=== PATIENT | female | born 1995 | race Caucasian/White ===

== ENCOUNTER 2023-09-06 10:25 | Outpatient (OUT) | payer OTHER, SELFPAY ==
[2023-09-06 10:49] LABS: Basophils Percent Auto 0.5 % (0.2-2.0); Eosinophils Absolute Auto 0.2 10^3/uL (0.0-0.7); Eosinophils Percent Auto 1.9 % (0.9-7.0); Hematocrit 37.2 % (36.0-48.0); Hemoglobin 12.6 g/dL (12.0-16.0); Immature Granulocytes Abs Auto 0.04 10^3/uL (0.00-0.03); Immature Granulocytes Pct Auto 0.5 % (0.0-0.5); Lymphocytes Absolute Auto 2.7 10^3/uL (1.2-3.8); Lymphocytes Percent Auto 34.6 % (20.5-60.0); Mean Corpuscular HGB Conc 33.9 g/dL (29.9-35.2); Mean Corpuscular Hemoglobin 31.8 pg (26.7-34.0); Mean Corpuscular Volume 93.9 fL (81.0-99.0); Mean Platelet Volume 9.6 fL (9.5-13.5); Monocytes Absolute Auto 0.5 10^3/uL (0.3-0.8); Monocytes Percent Auto 5.9 % (1.7-12.0); Neutrophils Absolute Auto 4.5 10^3/uL (1.4-6.5); Neutrophils Percent Auto 56.6 % (43.0-75.0); Platelet Count 355 10^3/uL (150-450); Red Blood Count 3.96 10^6/uL (4.20-5.40); Red Cell Distribution Width 11.9 % (11.0-15.0); White Blood Count 7.9 10^3/uL (4.0-11.0)
[2023-09-06 11:20] LABS: Estimated Average Glucose 108 mg/dL; Glycohemoglobin A1C 5.4 % (4.5-6.2)
[2023-09-06 12:27] LABS: Free T4 0.76 ng/dL (0.76-1.46)
[2023-09-06 12:30] LABS: HCG Quantitative <1 mIU/mL; Thyroid Stimulating Hormone 1.039 uIU/mL (0.358-3.740)
[2023-09-07 04:07] LABS: FSH 6.1 mIU/mL (.); Luteinizing Hormone(LH) 18.2 mIU/mL (.)
[2023-09-10 12:08] LABS: Anti-Mullerian Hormone (AMH) 13.6 ng/mL (.)
[2023-09-12 12:09] LABS: DHEA, Serum 513 ng/dL (31-701)
== END 2023-09-06 10:26 | disposition home or self-care (01) ==
PROVIDERS: Visit Provider Obstetrics & Gynecology
DX: E28.2 Polycystic ovarian syndrome (principal)
CPT/HCPCS: 36415; 82397; 82626; 82627; 83001; 83002; 83036; 84439; 84443; 84702; 85025

== ENCOUNTER 2023-12-09 10:03 | Outpatient (OUT) | payer OTHER, SELFPAY ==
--- OUTSIDE RECORDS SUMMARY | 2023-12-09 10:07 | XMS_ITS | CCD ---
Author Name Unknown Address [facility] [address] [place] [address] Organization [facility] Care Team Providers Care Partner Integration Planner Name Role Phone OTHER, [facility]OSPITAL [facility] Unavailable Unava ilable OTHER, HOSPITAL PHYSICIANS Unavailable Unava ilable DOT CHAVEZ Unavailable Unavailable KARASIK, DR THOMAS Admitting Unavailable KARASIK, DR THOMAS Attending Unavailable KARASIK, DR THOMAS Consulting Unavailable ZIEBER, DR ROMELIA Bethea Consulting Unavailable KARASIK, DR THOMAS Attending Unavailable KARASIK, DR THOMAS Consulting Unavailable KARASIK, DR THOMAS Admitting Unavailable Unavailable Primary Care Provider UnavailJENAE Britt Attending Unavailable Allergies Allergy Classification Reported Allergen(s) Allergy Type Date of Onset Reaction(s) Facility (1 source) Cat Dander Propensity to adverse reactions to drug 9 Itching, Other: See Comments [facility] Medications Current Medications Medication Drug Class(es) Dates Sig (Normalized) Sig (Original) Ethinyl Estradiol / norgestimate (1 source) Progestin, Estrogen Start: 03-19-2022 take 1 tablet by mouth once daily norgestimate 0.25 mg-ethinyl estradiol 35 mcg (SPRINTEC, ORTHO-CYCLEN) 0.25-35 mg-mcg per tablet Take 1 tablet by mouth once daily. 30 tablet 11 03/19/2022 Active Comment on above: Take 1 tablet by once daily. 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 Unclassified (1 source) Unknown / UNK(Unknown) Onset: 8 Past or Other Problems Problem Classification Problem Date Documented Da te Episodic/Chronic Genitourinary symptoms and ill-defined conditions (4 sources) Dysuria; Translations: [Dysuria] Onset: 10-25-2017 Episodic Results Test Name Value Interpretation Reference Range Facility Comp Metabolic Panelon 10-21 Albumin [Mass/Vol] 4.8 g/dL Normal 3.9-4.9 [facility] Comment on above: Performed By: #### I NSULN, DHEAS #### [facility] [address] [address] ALP [Catalytic activity/Vol] 64 U/L Normal 34-123 [facility] Comment on above: Performed By: #### I NSULN, DHEAS #### [address] [address] ALT [Catalytic activity/Vol] 20 U/L Normal 7-38 [facility] Comment on above: Performed By: #### I NSULN, DHEAS #### [id number] [place] [address] Anion gap [Moles/Vol] 12 mmol/L Normal 9-18 [facility] Comment on above: Performed By: #### I NSULN, DHEAS #### [address] [place] [address] AST [Catalytic activity/Vol] 16 U/L Normal 13-35 [facility] Comment on above: Performed By: #### I NSULN, DHEAS #### [facility] [employer] [address] [address] Bilirubin [Mass/Vol] 0.4 mg/dL Normal 0.2-1.3 [facility] Comment on above: Performed By: #### I NSULN, DHEAS #### [facility] [employer] [address] [address] Calcium [Mass/Vol] 9.3 mg/dL Normal 8.5-10.2 [facility] Comment on above: Performed By: #### I RIOSN DHEAS #### [place] [phone] Chloride [Moles/Vol] 102 mmol/L Normal 97-105 [facility] Comment on above: Performed By: #### I TOMI DHEAS #### [address] [place] [phone] CO2 [Moles/Vol] 25 mmol/L Normal 22-30 [facility] Comment on above: Performed By: #### I TOMI DHEAS #### [place] [phone] Creatinine [Mass/Vol] 0.61 mg/dL Normal 0.58-0.96 [facility] Comment on above: Performed By: #### I TOMI DHEAS #### [address] [place] [phone] eGFR- Amer. >60 Normal [facility] Comment on above: Performed By: #### I TOMI DHEAS #### [place] [phone] eGFR-All Other Races >60 Normal [facility] Comment on above: Result Comment: eGFR (Estimated GFR) Units of measure: mL/min/1.73 meters squared eGFR is derived from the reexpressed MDRD Study equation using the following parameters: serum creatinine, age, gender and race. The creatinine assay has been calibrated to be traceable to IDMS. An eGFR <60 mL/min/1.73m2 for >3 months is consistent with chronic kidney disease. Refer to KDOQI guidelines for clinical interpretation. In patients with unstable renal function, e.g. those with acute kidney injury, the eGFR may not accurately reflect actual GFR. Note: On 12/11/2021, the eGFR calculation will be updated to the NKF-ASN Task Force recommended 2020 CKD-EPI creatinine equation which does not include a race variable. For more information or to access a 2020 CKD-EPI calculator, visit the National Kidney Foundation website at kidney.org/professionals/kdoqi/gfr_calculator. Performed By: #### I TOMI DHEAS #### [facility] [employer] [address] [address] Glucose [Mass/Vol] 110 mg/dL High 74-99 [facility] Comment on above: Result Comment: The [place] Diabetes Association (ADA) provides guidance for cutoff values for fasting glucose and random glucose. The ADA defines fasting as no caloric intake for at least 8 hours. Fasting plasma glucose results between 100 to 125 mg/dL indicate increased risk for diabetes (prediabetes). Fasting plasma glucose results greater than or equal to 126 mg/dL meet the criteria for diagnosis of diabetes. In the absence of unequivocal hyperglycemia, results should be confirmed by repeat testing. In a patient with classic symptoms of hyperglycemia or hyperglycemic crisis, random plasma glucose results greater than or equal to 200 mg/dL meet the criteria for diagnosis of diabetes. Reference: Standards of Medical Care in Diabetes 2016, [place] Diabetes Association. Diabetes Care. 2016.39(Suppl 1). Performed By: #### I TOMI DHEAS #### [facility] [employer] [facility] [address] Potassium [Moles/Vol] 3.3 mmol/L Low 3.7-5.1 [facility] Comment on above: Performed By: #### I TOMI DHEAS #### [facility] [employer] [address] [address] Protein [Mass/Vol] 7.4 g/dL Normal 6.3-8.0 [facility] Comment on above: Performed By: #### I NSBRIANN DHEAS #### [facility] [employer] [address] [phone] Sodium [Moles/Vol] 139 mmol/L Normal 136-144 [facility] Comment on above: Performed By: #### I TOMI DHEAS #### [facility] [employer] [facility] [address] Urea nitrogen [Mass/Vol] 12 mg/dL Normal 7-21 [facility] Comment on above: Performed By: #### I TOMI DHEAS #### [address] [phone] [place] [phone] DHEA-Son 10-21-2021 DHEA-S 333.3 ug/dL Normal 148.0-407.0 [facility] Comment on above: Result Comment: Refe rence ranges are age and gender specific. For additional information, reference range tables can be found in the laboratory test directory. The normal values are based on the following source: Dehydroepiandrosterone sulfate (DHEA S) [package insert V 17.0 Yoruba]. [facility], [place], [place]: May 2013. Performed By: #### I TOMI DHEAS #### [address] [phone] Insulinon 10-21-2021 Insulin 17.1 mU/L Normal 3.0-25.0 [facility] Comment on above: Performed By: #### I TOMI DHEAS #### [address] [place] [phone] Testosterone, Tot/Fron 10-21 Testosterone [Mass/Vol] 50 ng/dL Normal 8-60 [facility] Comment on above: Result Comment: (NOT E) ADDITIONAL INFORMATION Testing performed by Liquid Chromatography-Tandem Mass Spectrometry (LC-MS/MS). This test was developed and its performance characteristics determined by [facility] in a manner consistent with CLIA requirements. This test has not been cleared or approved by the U.S. Food and Drug Administration. Performed By: #### T FTEST #### [facility] [address] [place] [address] Testosterone, Free 0.60 ng/dL Normal 0.06-1.08 [facility] Comment on above: Result Comment: (NOT E) ADDITIONAL INFORMATION Testing performed by [facility]. This test was developed and its performance characteristics determined by [facility] in a manner consistent with CLIA requirements. This test has not been cleared or approved by the U.S. Food and Drug Administration. Performed By: #### T FTEST #### [facility] [address] [place] [address] [facility] CNPN Telephone (ENDOMN) -- FRANCESCO COREAS ([id number]) 1995 F Date Time Provider Department 10/04/21 LIZZY VANCE During your visit today, we recorded the following information about you: Wilfred Sanchez 10/04/2021 1:20 PM Signed Release form, PCOS note,s and tumor marker lab re-indexed to chart. Allergies As of Date: 10/04/2021 (Not on File) Date Reviewed: Never Reviewed Reason for Visit: Received Outside Medical Records [[id number]] Cmt: PCOS notes, tumor marker lab, release form Problem List As Of Date: 10/04/2021 (None) Encounter Status:Closed by WILFRED SANCHEZ on 11/12/21 Normal [facility] 17-[place] PROGESTERONE, LC/MSon 09-09-2021 17-OH Progesterone LCMS 94 ng/dL Normal [facility] Comment on above: Result Comment: Adul t Female Follicular 15 - 70 Luteal 35 - 290 Performed By: #### P ROGLCM #### [facility] [address] [place] [address] Dr. Jae Smith US PELVIS AND TRANSVAGon US PELVIS AND TRANSVAG EXAMINATION: US PELVIS AND TRANSVAG HISTORY: Oligomenorrhea COMPARISON: No relevant comparison available. TECHNIQUE: Transabdominal and transvaginal sonographic examination. FINDINGS: UTERUS: Normal size and appearance. Uterus size: 6. 63.7 x 2.8 cm ENDOMETRIUM: Normal homogeneous appearance. Endometrial thickness: 5 mm RIGHT OVARY: Contains numerous peripherally located tiny follicles. Benign-appearing 1.7 cm cyst also seen. Duplex Doppler demonstrates normal waveform and flow; resistive index 0.63. Ovary size: 4.0 x 2.6 x 2.6 cm LEFT OVARY: Contains numerous peripherally located tiny follicles. Duplex Doppler demonstrates normal waveform and flow; resistive index 0.72. Ovary size: 2.9 x 3.2 x 2.3 cm CUL-DE-SAC: Unremarkable. No significant free fluid. BLADDER: Unremarkable. OTHER: None. IMPRESSION: 1. Numerous small peripherally located follicles within the right and left ovary; nonspecific but this can be seen with polycystic ovarian syndrome. 2. Normal appearance of uterus and endometrium. Electronically authenticated by: ROMELIA GATICA Date: 2021-09-07 14:08 Normal [facility] DHEA-SULFATEon 09-05-2021 DHEA-Sulfate 475.0 ug/dL Critically high 110.0-431.7 [facility] Comment on above: Performed By: #### D HETRICIA #### [facility] [address] [address] [address] Jae Smith FSHon 09-05-2021 FSH 6.2 mIU/mL Normal [facility] Comment on above: Result Comment: Adul t Female: Follicular phase 3.5 - 12.5 Ovulation phase 4.7 - 21.5 Luteal phase 1.7 - 7.7 Postmenopausal 25.8 - 134.8 Performed By: #### L BCFS #### [facility] [address] [place], [place] [address] Dr. Jae Smith LUTEINIZING HORMONE (LH)on 11-05-2020 LH 21.7 mIU/mL Normal [facility] Comment on above: Result Comment: Adul t Female: Follicular phase 2.4 - 12.6 Ovulation phase 14.0 - 95.6 Luteal phase 1.0 - 11.4 Postmenopausal 7.7 - 58.5 Performed By: #### L BCLH #### [facility] [address] [address] [address] Jae Smith PROLACTINon 09-05-2021 Prolactin 38.9 ng/mL Critically high 4.8-23.3 [facility] Comment on above: Performed By: #### P ROLAC #### [facility] [address] [address] [address] Jae Smith TESTOSTERONE, TOTALon 2020 Testosterone [Mass/Vol] 79 ng/dL Critically high 13-71 [facility] Comment on above: Performed By: #### T ESTTOT #### [facility] [address] [place] [address] Dr. Jae Smith TSHon 09-04-2021 TSH 1.687 uIU/mL Normal 0.470-4.680 [facility] Comment on above: Performed By: #### T SH #### [facility] [address] [place] [address] Dr. Jae Smith TSH RANGE SEE BELOW Normal [facility] Comment on above: Result Comment: <0.3 4 UIU/ml HYPERTHYROID 0.34-5.60 UIU/ml EUTHYROID >5.60 UIU/ml HYPOTHYROID Performed By: #### T SH #### [facility] [address] [place] [address] Dr. Jae Smith Auth for Release of Medical Recordson 01-26-2021 Auth for Release of Medical Records [id number]:[id number] Normal [facility] Chlam Amp RNAon 10-25-2017 Chlam Amp RNA Negative Normal Negative [facility] Comment on above: Result Comment: Holo gic? Aptima Combo 2 Assay is an in vitro nucleic acid amplification test for the detection of ribosomal RNA from Chlamydia trachomatis (CT) and Neisseria gonorrhoeae (GC) to aid in the diagnosis of chlamydial and/or gonococcal urogenital disease. This assay is FDA-approved for testing on female endocervical swabs, vaginal swabs, ThinPrep liquid-based pap samples, male urine samples and urethral swabs. Performance characteristics for this assay on specific ogq-ZPP-ecdzzgjd sample types (female urine) have been validated by [facility]. Performance has not been evaluated for patients less than 14 years of age. Results should be interpreted in conjunction with other clinical information. GC AMP RNAon 10-25-2017 GC Amp RNA Negative Normal Negative [facility] RUMon 10-25-2017 Bilirubin (total) Negative Normal [facility] Blood Negative Normal Negative [facility] Glucose mass conc Negative Normal Negative [facility] Leukocyte Falguni Negative Normal Negative [facility] Comment on above: Result Comment: Test ing performed by [facility] ED/UC Lab Protein Negative Normal Negative [facility] Ur Appearance Clear Normal Clear [facility] Urine Comment MICR N/A Normal [facility] Urine Spec Pal[place]ade 1.020 Normal 1.010 [facility] Urine, color Yellow Normal Yellow [facility] Urine, ketones presence Negative Normal Negative [facility] Urine, nitrite presence Negative Normal Negative [facility] Urine, pH 6.0 [pH] Normal 4.8 - 8.0 [facility] Urine, urobilinogen 0.2 {Seun'U}/dL Normal <1.0 [facility] U Pregon 10-25-2017 HCG.beta subunit ( test) Ql (U) Negative Normal Negative [facility] Comment on above: Result Comment: Test ing performed by [facility] ED/ Lab Wet Prepon 10-25-2017 Wet Prep SOURCE: Vag (Few Whi te Blood Cells No clue cells seen. No yeast seen. No Trichomonas seen.) Normal [facility] Encounters Encounter Date Encounter Type Care Provider Facility Start: 11-01-2023 End: 11-01-2023 ambulatory JENAE PADILLA Not Available Start: 03-19-2022 End: 03-19-2022 ambulatory Lizzy Vance MD Work Phone: Endocrinology Comment on above: Impaired fasting glu cose (Primary Dx); Hyperandrogenism Start: 03-19-2022 End: 03-19-2022 Telemedicine consultation with patient Lizzy Vance MD Work Phone: [facility] Start: 09-06-2021 End: 09-07-[address] WILLIAM CHACON Facility:[facility] Start: 09-04-2021 End: 09-05-[address] WILLIAM KARASIK Facility:[facility] Start: 10-25-2017 End: 10-25-2017 Ambulatory [facility] Start: 10-25-2017 Ambulatory Facility:9 769 Plan of Treatment Date Care Activity Detail Author Start: 06-16-2022 Influenza vaccination INFLUENZA (Sea son Ended) [facility] Start: 04-30-2022 End: 06-30-2022 Comprehensive metabolic 2000 panel - Serum or Plasma COMP METABOLIC PANEL Lab Routine Impaired fasting glucose Hyperandrogenism Expected: 04/30/2022, Expires: 06/30/2022 [facility] Work Phone: Comment on above: Expected: 04/30/2022 , Expires: 06/30/2022 Start: 04-30-2022 End: 06-30-2022 TESTOSTERONE, FREE AND TOTAL TESTOSTERONE, FREE AND TOTAL Lab Routine Impaired fasting glucose Hyperandrogenism Expected: 04/30/2022, Expires: 06/30/2022 [facility] Work Phone: Comment on above: Expected: 04/30/2022 , Expires: 06/30/2022 Start: 2018 PAP TESTING PAP TESTING [facility] Start: 2016 Urine microalbumin profile DTAP,TDAP,TD (1 - Tdap) [facility] Start: 2015 HEPATITIS C SCREENING HEPATITIS C SC REENING [facility] Start: 2015 HIV SCREENING HIV SCREENING [facility] Start: 2011 PEDS TO ADULT TRANSITION ANNUAL ASSESSMENT PEDS TO ADULT TRANSITION ANNUAL ASSESSMENT [facility] Start: 2009 Adult depression screening assessment DEPRESSION SCREENING [facility] Start: 2009 PEDS TO ADULT TRANSITION INITIAL DISCUSSION PEDS TO ADULT TRANSITION INITIAL DISCUSSION [facility] Start: 2008 HPV VACCINE (1 - 2-d ose series) HPV VACCINE (1 - 2-dose series) [facility] Start: 2007 MENINGOCOCCAL B: Consider based on risk (1 of 2 - Risk Bexsero 2-dose series) MENINGOCOCCAL B: Consider based on risk (1 of 2 - Risk Bexsero 2-dose series) [facility] Start: 2002 COVID-19 VACCINE (#1) COVID-19 VACCI NE (#1) [facility] Payers Date Payer Category Payer Private Health Insurance [id number] 2020 Private Health Insurance [employer]ET[employer] A ETNA CHOICE POS II [id number] 2020-Present [phone] [address] [place] [address] POS [id number] 1995 Unknown [id number] 1995 Unknown [id number] 1995 Unknown [id number] 1957 Private Health Insurance [id number] Private Health Insurance [id number] Social History Date Type Detail Facility [facility] consumption [facility] Start: 1995 Sex Assigned At Female [facility] Progress note 03-19-2022 Note Date & Type Note Facility 03-19-2022 Note HNO ID: [id number] Author: Lizzy Vance MD Service: ? Author Type: Physician Type: Progress Notes Filed: 03/19/2022 8:41 AM Note Text: VIRTUAL VISIT PROGRESS NOTE ? This is a virtual visit using?[employer] video platform.?It required patient-provider interaction for the medical decision making as documented below. ? ? Francesco Coreas is a 26 year old female seen for?PCOS. ? Parts of this note are copied from last visit and modified as needed. ? HISTORY REVIEWED (electronic chart updated): PAST MEDICAL HISTORY No past medical history on file. ? PAST SURGICAL HISTORY No past surgical history on file. ? FAMILY HISTORY No family history on file. ? SOCIAL HISTORY Social History ? Tobacco Use - Smoking status: Not on file - Smokeless tobacco: Not on file Substance Use Topics - Alcohol use: Not on file - Drug use: Not on file ? CURRENT MEDICATIONS No current outpatient medications on file. ? No current facility-administered medications for this visit. ? ALLERGIES ALLERGIES Not on File ? ? Review of patient's past medical history indicates:?Patient was just diagnosed with PCOS. Her doctor prescribed BCP-s and spironolactone. She takes BCP-s but not spironolactone. Her BMI is 28.3. Her weight is 170 lbs and she is 5'5''. She does not have issues with acne and hair growth. Her testosterone was high when checked. No other labs are done.? ?? ROS: Energy is good. Sleeps well. Weight is stable. No difficulties swallowing or breathing. No pain or tenderness from thyroid bed. No heart palpitations. No temperature intolerance. No excessive sweating No constipation or diarrhea. Menstrual period is?irregular. Comes every 2-3 months an it is light.? No problems with skin, hair or nails. No muscle weaknes. No muscle cramping. No tremors. Memory is good. No problems focusing. ? SOC HX: No smoking or drinking.?Lives with boyfriend. Works in [employer] No children. Never been . ? FAM HX: No thyroid disese in the family. ? PE: Young CC female. No acute distress, alert and oriented and in appropriate mood. HEENT: Tamar, sclera anicteric, conjunctiva non inflamed, oral mucosa moist, no lesions. No lid lag. No stare. No exophtalmos. NECK:?No visible goiter. EXT: No edema or deformities. SKIN: no rash or lesions. No achantosis nigricans. NEURO: No focal signs. No tremors. ? ? Component Latest Ref Rng AND Units 10/21/2021 Protein, Total 6.3 - 8.0 g/dL 7.4 Albumin 3.9 - 4.9 g/dL 4.8 Calcium 8.5 - 10.2 mg/dL 9.3 Bilirubin, Total 0.2 - 1.3 mg/dL 0.4 Alkaline Phosphatase 34 - 123 U/L 64 AST 13 - 35 U/L 16 Glucose 74 - 99 mg/dL 110 (H) BUN 7 - 21 mg/dL 12 Creatinine 0.58 - 0.96 mg/dL 0.61 Sodium 136 - 144 mmol/L 139 Potassium 3.7 - 5.1 mmol/L 3.3 (L) Chloride 97 - 105 mmol/L 102 CO2 22 - 30 mmol/L 25 Anion Gap 9 - 18 mmol/L 12 ALT 7 - 38 U/L 20 eGFR- ? >60 eGFR-All Other Races . >60 Testosterone 8 - 60 ng/dL 50 Testosterone Free 0.06 - 1.08 ng/dL 0.60 Insulin 3.0 - 25.0 mU/L 17.1 DHEA-S 148.0 - 407.0 ug/dL 333.3 ? Assessment and Plan:?We decided to do the evaluation for hyperandrogenism and than determine what would be the best course of treatment. Her androgens were normal and we decided to continue only with BCP-s. She feels good now and has no current problems. She is concerned about future fertility, but I think she will, likely, have no problems. Her ovarian US exam was unremarkable. Her fasting glucose was 110. She will now stop BCP-s and we will recheck labs in 2 months and have virtual visit. Will stay in touch by [employer]. Lizzy Vance MD Answers for HPI/ROS submitted by the patient on 03/19/2022 Fever : No Night Sweats: Yes Recent Unintentional Weight Change: No Nasal Congestion: No Hearing Loss: No Vision Disturbance: No A Cough: No Difficulty Breathing?: No Chest Pain: No Irregular Heart Beat: No Leg Swelling: No Nausea: No Diarrhea: No Black Tarry Stools: No Difficulty Urinating?: No Awaken at Night More Than Once to Urinate?: No Joint Pain or Stiffness: No Muscle Aches: No Leg or Foot Discomfort at Night?: No A Rash: No Dizziness: No Headaches: No Memory Loss: No Seizures: No [facility] History of Present illness Narrative 03-19-2022 Lizzy Vance MD - 03/19/2022 8:31 AM EDT Note Date & Type Note Facility 03-19-2022 History of Presen t illness Narrative VIRTUAL VISIT PROGRESS NOTE This is a virtual visit using [employer] video platform. It required patient-provider interaction for the medical decision making as documented below. Francesco Coreas is a 26 year old female seen for PCOS. Parts of this note are copied from last visit and modified as needed. HISTORY REVIEWED (electronic chart updated): PAST MEDICAL HISTORY No past medical history on file. PAST SURGICAL HISTORY No past surgical history on file. FAMILY HISTORY No family history on file. SOCIAL HISTORY Social History Tobacco Use Smoking status: Not on file Smokeless tobacco: Not on file Substance Use Topics Alcohol use: Not on file Drug use: Not on file CURRENT MEDICATIONS No current outpatient medications on file. No current facility-administered medications for this visit. ALLERGIES ALLERGIES Not on File Review of patient's past medical history indicates: Patient was just diagnosed with PCOS. Her doctor prescribed BCP-s and spironolactone. She takes BCP-s but not spironolactone. Her BMI is 28.3. Her weight is 170 lbs and she is 5'5''. She does not have issues with acne and hair growth. Her testosterone was high when checked. No other labs are done. ROS: Energy is good. Sleeps well. Weight is stable. No difficulties swallowing or breathing. No pain or tenderness from thyroid bed. No heart palpitations. No temperature intolerance. No excessive sweating No constipation or diarrhea. Menstrual period is irregular. Comes every 2-3 months an it is light. No problems with skin, hair or nails. No muscle weaknes. No muscle cramping. No tremors. Memory is good. No problems focusing. SOC HX: No smoking or drinking. Lives with boyfriend. 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 No children. Never been . FAM HX: No thyroid disese in the family. PE: Young CC female. No acute distress, alert and oriented and in appropriate mood. HEENT: Tamar, sclera anicteric, conjunctiva non inflamed, oral mucosa moist, no lesions. No lid lag. No stare. No exophtalmos. NECK: No visible goiter. EXT: No edema or deformities. SKIN: no rash or lesions. No achantosis nigricans. NEURO: No focal signs. No tremors. Component Latest Ref Rng & Units 10/21/2021 Protein, Total 6.3 - 8.0 g/dL 7.4 Albumin 3.9 - 4.9 g/dL 4.8 Calcium 8.5 - 10.2 mg/dL 9.3 Bilirubin, Total 0.2 - 1.3 mg/dL 0.4 Alkaline Phosphatase 34 - 123 U/L 64 AST 13 - 35 U/L 16 Glucose 74 - 99 mg/dL 110 (H) BUN 7 - 21 mg/dL 12 Creatinine 0.58 - 0.96 mg/dL 0.61 Sodium 136 - 144 mmol/L 139 Potassium 3.7 - 5.1 mmol/L 3.3 (L) Chloride 97 - 105 mmol/L 102 CO2 22 - 30 mmol/L 25 Anion Gap 9 - 18 mmol/L 12 ALT 7 - 38 U/L 20 eGFR- >60 eGFR-All Other Races . >60 Testosterone 8 - 60 ng/dL 50 Testosterone Free 0.06 - 1.08 ng/dL 0.60 Insulin 3.0 - 25.0 mU/L 17.1 DHEA-S 148.0 - 407.0 ug/dL 333.3 Assessment and Plan: We decided to do the evaluation for hyperandrogenism and than determine what would be the best course of treatment. Her androgens were normal and we decided to continue only with BCP-s. She feels good now and has no current problems. She is concerned about future fertility, but I think she will, likely, have no problems. Her ovarian US exam was unremarkable. Her fasting glucose was 110. She will now stop BCP-s and we will recheck labs in 2 months and have virtual visit. Will stay in touch by My-chart. Lizzy Vance MD Answers for HPI/ROS submitted by the patient on 03/19/2022 Fever : No Night Sweats: Yes Recent Unintentional Weight Change: No Nasal Congestion: No Hearing Loss: No Vision Disturbance: No A Cough: No Difficulty Breathing?: No Chest Pain: No Irregular Heart Beat: No Leg Swelling: No Nausea: No Diarrhea: No Black Tarry Stools: No Difficulty Urinating?: No Awaken at Night More Than Once to Urinate?: No Joint Pain or Stiffness: No Muscle Aches: No Leg or Foot Discomfort at Night?: No A Rash: No Dizziness: No Headaches: No Memory Loss: No Seizures: No documented in this encounter [facility] Progress note 11-12-2021 Note Date & Type Note Facility 11-12-2021 Note HNO ID: [id number] Author: Lizzy Vance MD Service: ? Author Type: Physician Type: Progress Notes Filed: 11/12/2021 10:44 AM Note Text: VIRTUAL VISIT PROGRESS NOTE ? This is a virtual visit using [employer] video platform. It required patient-provider interaction for the medical decision making as documented below. ? Francesco Coreas is a 26 year old female seen for PCOS. Parts of this note are copied from last visit and modified as needed. ? HISTORY REVIEWED (electronic chart updated): PAST MEDICAL HISTORY No past medical history on file. PAST SURGICAL HISTORY No past surgical history on file. FAMILY HISTORY No family history on file. SOCIAL HISTORY Social History ? Tobacco Use - Smoking status: Not on file - Smokeless tobacco: Not on file Substance Use Topics - Alcohol use: Not on file - Drug use: Not on file ? CURRENT MEDICATIONS No current outpatient medications on file. ? No current facility-administered medications for this visit. ALLERGIES ALLERGIES Not on File ? Review of patient's past medical history indicates: Patient was just diagnosed with PCOS. Her doctor prescribed BCP-s and spironolactone. She takes BCP-s but not spironolactone. Her BMI is 28.3. Her weight is 170 lbs and she is 5'5''. She does not have issues with acne and hair growth. Her testosterone was high when checked. No other labs are done. ROS: Energy is good. Sleeps well. Weight is stable. No difficulties swallowing or breathing. No pain or tenderness from thyroid bed. No heart palpitations. No temperature intolerance. No excessive sweating No constipation or diarrhea. Menstrual period is irregular. Comes every 2-3 months an it is light. No problems with skin, hair or nails. No muscle weaknes. No muscle cramping. No tremors. Memory is good. No problems focusing. ? SOC HX: No smoking or drinking. Lives with boyfriend. Works in [employer] ([employer]). No children. Never been . ? FAM HX: No thyroid disese in the family. ? PE: Young CC female. No acute distress, alert and oriented and in appropriate mood. HEENT: Tamar, sclera anicteric, conjunctiva non inflamed, oral mucosa moist, no lesions. No lid lag. No stare. No exophtalmos. NECK: No visible goiter. EXT: No edema or deformities. SKIN: no rash or lesions. No achantosis nigricans. NEURO: No focal signs. No tremors. Component Latest Ref Rng AND Units 10/21/2021 Protein, Total 6.3 - 8.0 g/dL 7.4 Albumin 3.9 - 4.9 g/dL 4.8 Calcium 8.5 - 10.2 mg/dL 9.3 Bilirubin, Total 0.2 - 1.3 mg/dL 0.4 Alkaline Phosphatase 34 - 123 U/L 64 AST 13 - 35 U/L 16 Glucose 74 - 99 mg/dL 110 (H) BUN 7 - 21 mg/dL 12 Creatinine 0.58 - 0.96 mg/dL 0.61 Sodium 136 - 144 mmol/L 139 Potassium 3.7 - 5.1 mmol/L 3.3 (L) Chloride 97 - 105 mmol/L 102 CO2 22 - 30 mmol/L 25 Anion Gap 9 - 18 mmol/L 12 ALT 7 - 38 U/L 20 eGFR- >60 eGFR-All Other Races . >60 Testosterone 8 - 60 ng/dL 50 Testosterone Free 0.06 - 1.08 ng/dL 0.60 Insulin 3.0 - 25.0 mU/L 17.1 DHEA-S 148.0 - 407.0 ug/dL 333.3 Assessment and Plan: We decided to do the evaluation for hyperandrogenism and than determine what would be the best course of treatment. Her androgens were normal and we decided to continue only with BCP-s. She feels good now and has no current problems. She is concerned about future fertility, but I think she will, likely, have no problems. Her ovarian US exam was unremarkable. Her fasting glucose was 110 and we will recheck it in 6 months. Will stay in touch by [employer]. Lizzy Vance MD ? [facility] Progress note 09-28-2021 Note Date & Type Note Facility 09-28-2021 Note HNO ID: [id number] Author: Lizzy Vance MD Service: ? Author Type: Physician Type: Progress Notes Filed: 09/28/2021 3:53 PM Note Text: VIRTUAL VISIT PROGRESS NOTE This is a virtual visit using [employer] video platform. It required patient-provider interaction for the medical decision making as documented below. Francesco Coreas is a 26 year old female seen for PCOS. HISTORY REVIEWED (electronic chart updated): No past medical history on file. No past surgical history on file. No family history on file. Social History Tobacco Use - Smoking status: Not on file - Smokeless tobacco: Not on file Substance Use Topics - Alcohol use: Not on file - Drug use: Not on file No current outpatient medications on file. No current facility-administered medications for this visit. ALLERGIES Not on File Review of patient's past medical history indicates: Patient was just diagnosed with PCOS. Her doctor prescribed BCP-s and spironolactone. She takes BCP-s but not spironolactone. Her BMI is 28.3. Her weight is 170 lbs and she is 5'5''. She does not have issues with acne and hair growth. Her testosterone was high when checked. No other labs are done. ROS: Energy is good. Sleeps well. Weight is stable. No difficulties swallowing or breathing. No pain or tenderness from thyroid bed. No heart palpitations. No temperature intolerance. No excessive sweating No constipation or diarrhea. Menstrual period is irregular. Comes every 2-3 months an it is light. No problems with skin, hair or nails. No muscle weaknes. No muscle cramping. No tremors. Memory is good. No problems focusing. SOC HX: No smoking or drinking. Lives with boyfriend. 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 No children. Never been . FAM HX: No thyroid disese in the family. PE: Young CC female. No acute distress, alert and orineted and in appropriate mood. HEENT: Tamar, sclera anicteric, conjunctiva non inflamed, oral mucosa moist, no lesions. No lid lag. No stare. No exophtalmos. NECK: No visible goiter. EXT: No edema or deformities. SKIN: no rash or lesions. No achantosis nigricans. NEURO: No focal signs. No tremors. Assessment and Plan: we will do the evaluation for hyperandrogenism and than determine what would be the best course of treatment. Will stay in touch by My-chart. Lizzy Vance MD Answers for HPI/ROS submitted by the patient on 09/22/2021 Fatigue: No Night Sweats: Yes Recent Unintentional Weight Change: No Skin Color Changes: No Post-Nasal Drip: No Thyroid Pain (lower neck): No Trouble Swallowing: No Vision Disturbance: No Chest Pain: No Leg Swelling: No Blood Clots?: No Leg Pain while walking?: No Difficulty Breathing?: No Heartburn: No Nausea: No Vomiting?: No Diarrhea: No Constipation: No Abdominal Pain: No Bone Pain?: No Muscle Aches: No Muscle Weakness: No Joint Pain or Stiffness: No Headaches: No Dizziness: No Numbness?: No Urgency to Urinate?: No Increased Urination?: No Slow or Small Urine Stream?: No Are your menstrual cycles regular?: No Are your menstrual cycles irregular?: Yes Have your menstrual cycles stopped?: No Flushing?: No Hot Flashes?: No Increased Thirst: No Change in Body Hair?: No Cold Intolerance: No Heat Intolerance?: No [facility] Evaluation note Note Date & Type Note Facility Evaluation note Diagnosis Impaired fasting glucose- Primary Hyperandrogenism Other ovarian hyperfunction documented in this encounter [facility] Summary Purpose Family History No Family History Records FoundNo Family History Records FoundNo Family History Records FoundNo Family History Records FoundNo Family History Records FoundNo Family History Records Found Advance Directives No Advanced Directives Records FoundNo Advanced Directives Records FoundNo Advanced Directives Records FoundNo Advanced Directives Records FoundNo Advanced Directives Records FoundNo Advanced Directives Records Found Additional Source Comments INFORMATION SOURCE (unrecogn ized section and content) DATE CREATED AUTHOR 04/10/2018 [facility] DATE CREATED AUTHOR AUTHOR'S ORGANIZ ATION 04/10/2018 [facility] DATE CREATED AUTHOR AUTHOR'S ORGANIZ ATION 01/27/2021 [facility] DATE CREATED AUTHOR AUTHOR'S ORGANIZ ATION 09/16/2021 [facility] DATE CREATED AUTHOR AUTHOR'S ORGANIZ ATION 03/19/2022 [facility] DATE CREATED AUTHOR AUTHOR'S ORGANIZ ATION 11/02/2023 [facility] EPIC Source Comments (unrecognize d section and content) In the event this informatio n is protected by the Federal Confidentiality of Alcohol and Drug Abuse Patient Records regulations: The Federal rules restrict any use of the information to criminally investigate or prosecute any alcohol or drug abuse patient.[facility] Reason for Visit (unrecogniz ed section and content) Reason Comments High Blood Sugar FOR RECORDS PERTAINING TO PATIENTS WHO ARE OR HAVE BEEN ENROLLED IN A CHEMICAL DEPENDENCY/SUBSTANCEABUSE PROGRAM, SOME INFORMATION MAY BE OMITTED. This clinical summary was aggregated from multiple sources. Caution should be exercised in using it in the provision of clinical care. This summary normalizes information from multiple sources, and as a consequence, information in this document may materially change the coding, format and clinical context of patient data. In addition, data may be omitted in some cases. CLINICAL DECISIONS SHOULD BE BASED ON THE PRIMARY CLINICAL RECORDS. [facility]. provides no warranty or guarantee of the accuracy or completeness of information in this document.
[2023-12-10 08:10] LABS: Progesterone 14.4 ng/mL (.)
== END 2023-12-09 10:04 | disposition home or self-care (01) ==
LOC: LAB 10:05
PROVIDERS: Visit Provider Obstetrics & Gynecology
DX: N97.9 Female infertility, unspecified (principal)
CPT/HCPCS: 36415; 84144

== ENCOUNTER 2025-05-10 22:49 | Emergency (ER) | payer OTHER, SELFPAY ==
[2025-05-10 22:53] VITALS: BP 128/85; PULSE 84; TEMP 36.9; O2SAT 98; BMI 24.1
--- OUTSIDE RECORDS SUMMARY | 2025-05-10 22:55 | XMS_ITS | CCD ---
Author Organization [facility] Care Team Providers Care Grease Maker Head Name Role Phone OTHER, HOSPITAL PHYSICIANS Unavailable Unava ilable OTHER, HOSPITAL PHYSICIANS Unavailable Unava ilable DOT CHAVEZ Unavailable Unavailable KARASIK, DR THOMAS Admitting Unavailable KARASIK, DR THOMAS Attending Unavailable KARASIK, DR THOMAS Consulting Unavailable ZIEBER, DR ROMELIA Bethea Consulting Unavailable KARASIK, DR THOMAS Attending Unavailable KARASIK, DR THOMAS Consulting Unavailable KARASIK, DR THOMAS Admitting Unavailable Unavailable Primary Care Provider UnavailJENAE Britt Attending Unavailable Дмитрий-Rachel THERAPIST SPEECH, Nohemy N Unavailable Un available FARIHARUI R Referring Unavailable Дмитрий-Rachel THERAPIST SPEECH, Nohemy N Unavailable Un available RUI SAPP R Attending Unavailable ELISSA MCINTYRE Attending Unavailable RUI SAPP R Referring Unavailable FARIHARUI R Referring Unavailable FARIHARUI R Attending Unavailable Allergies Allergy Classification Reported Allergen(s) Allergy Type Date of Onset Reaction(s) Facility (1 source) Cat Dander Propensity to adverse reactions to drug 9 Itching, Other: See Comments [facility] Medications Current Medications Medication Drug Class(es) Dates Sig (Normalized) Sig (Original) Ethinyl Estradiol / norgestimate (1 source) Progestin, Estrogen Start: 03-19-2022 take 1 tablet by mouth once daily norgestimate 0.25 mg-ethinyl estradiol 35 mcg (SPRINTEC, ORTHO-CYCLEN) 0.25-35 mg-mcg per tablet Take 1 tablet by mouth once daily. 30 tablet 11 03/19/2022 Active Comment on above: Take 1 tablet by once daily. PNV no.153/FA/om3/dha/e pa/fish ( GUMMIES ORAL) (1 source) take 1 capsule by mouth once daily PNV no.153/FA/om3/dha/e pa/fish ( GUMMIES ORAL) Take 1 capsule by mouth once daily. Active Completed/Discontinued Medications Medication Drug Class(es) Dates Sig (Normalized) Sig (Original) iohexol (OMNIPaque) 240 mg iodine/mL solution 20 mL (1 source) Start: 11-25-2024 End: 11-25-2024 20 mL, vaginal, Once in imaging, Starting on Mon11/25/24 at 0816, For 1 dose Problems Active Problems Problem Classification Problem Date Documented Date Episodic/Chronic Diabetes mellitus without complication (1 source) Impaired fasting glycemia; Translations: [Impaired fasting glucose] Episodic Female infertility (4 sources) Female infertility; Translations: [Female infertility, unspecified] Onset: 5 10-22-2024 Chronic Menstrual disorders (10 sources) Oligomenorrhea, unspecified; Translations: [Oligomenorrhea] Onset: 1 Chronic Other endocrine disorders (1 source) Hyperandrogenization syndrome; 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 Unclassified (1 source) Unknown / UNK(Unknown) Onset: 8 Unclassified (4 sources) Patient encounter status 10-22-2024 Past or Other Problems Problem Classification Problem Date Documented Da te Episodic/Chronic Contraceptive and procreative management (4 sources) Encounter for fertility testing; Translations: [Encounter for fertility testing] Onset: 10-22-2024 Episodic Genitourinary symptoms and ill-defined conditions (4 sources) Dysuria; Translations: [Dysuria] Onset: 10-25-2017 Episodic Immunizations and screening for infectious disease (11 sources) Patient encounter status; Translations: [Encounter for screening for other viral diseases] Onset: 10-22-2024 10-22-2024 Episodic Other screening for suspected conditions (not mental disorders or infectious disease) (6 sources) Encounter for screening for other suspected endocrine disorder; Translations: [Encounter for screening for diabetes mellitus] Onset: 10-22-2024 Episodic Unclassified (3 sources) Onset: 10-22-2024 Resolved: 12-30-2024 10-22-2024 Results Test Name Value Interpretation Reference Range Facility FL HYSTEROSALPINGOGRAMon FL HYSTEROSALPINGOGRAM Interpreted By: Akhil Betts, STUDY: FL HYSTEROSALPINGOGRAM; 11/25/2024 8:15 am INDICATION: Signs/Symptoms:Fertilit y testing. COMPARISON: None. ACCESSION NUMBER(S): [id number] ORDERING CLINICIAN: RUI SPAP TECHNIQUE: An HSG was performed by the sleep technician in conjunction with the provider examination. 30 ML of water soluble contrast was infused under fluoroscopic guidance and spot views of the uterus and bilateral fallopian tubes were obtained. The patient tolerated the procedure well. Fluoroscopic time was recorded by the loom technician separately. FINDINGS: Smooth uterine cavity with no demonstrated changes in endometrial contour or filling defects noted. The fallopian tubes fill with contrast and free peritoneal spill is noted bilaterally. Normal tubal architecture is noted. IMPRESSION: 1. Correlate with real time fluoroscopic findings at the time of procedure. 2. Normal study. Based on these findings, my recommendation is: Follow up with ordering provider for management and next steps MACRO: None Signed by: Akhil Betts 11/29/2024 5:22 PM Dictation workstation: [id number] [facility] Hysterosalpingogram (HSG)on 11-25-2024 LANA Richardson CNP 11/25/2024 8:09 AM Hysterosalpingogram (HSG) Date/Time: 11/25/2024 8:08 AM Performed by: FREDIS Richardson Authorized by: FREDIS Richardson Consent: Consent obtained: Verbal and written Consent given by: Patient Risks, benefits, and alternatives were discussed: yes Risks discussed: Bleeding, infection and pain Alternatives discussed: No treatment Holloway protocol: Procedure explained and questions answered to patient or proxy's satisfaction: yes Relevant documents present and verified: yes Test results available: yes Imaging studies available: yes Required blood products, implants, devices, and special equipment available: yes Site/side marked: no Immediately prior to procedure, a time out was called: yes Patient identity confirmed: Verbally with patient, arm band and hospital-assigned identification number Indications: Indications: Fertility testing Pre-procedure details: Skin preparation: Povidone-iodine Sedation: Sedation type: None Anesthesia: Anesthesia method: None Procedure specific details: Done by this MARY Hysterosalpingogram (HSG) risks, benefits, alternatives, and personnel discussed with patient who agreed to proceed. Procedural time out Done in room where procedure done: Yes Done just before starting procedure: Yes All members of procedural team involved in time-out: Yes Active communication used: Yes All team members agreed on procedure: Yes Patient correctly identified by two identifiers: Yes Correct side and site identified: Yes All needed special equipment/instruments available: Yes Prior to the start of the procedure a time out was taken and the following were verified: The identity of the patient using two patient identifiers. Urine test was performed and was negative. Risks, benefits, and alternatives of the procedure were explained to the patient. Informed consent was obtained. The patient was placed in the dorsal lithotomy position and a sterile speculum was placed in the vagina. The cervix was sterilized with Betadine x 3. The anterior lip of the cervix was grasped with a single-tooth tenaculum. The (balloon/acorn) cannula was then placed in the cervix and secured to the tenaculum. The patient was positioned and images were taken with fluoroscopy as dye was inserted through the cannula. All instruments were then removed. The patient tolerated the procedure well and was discharged home the same day without complications. Uterus: normal contour without filling defects Tubes: bilateral patency with free spill of dye, normal tubal architecture noted, and no loculations present. Based on these findings, my recommendation is: No further follow up required. The patient was counseled regarding the above findings and images were reviewed with patient at the time of the exam. Elissa Mcintyre, AWS CONSULTANT-LINSEED OIL PRESS TENDER Post-procedure details: Procedure completion: Tolerated well, no immediate complications [facility] Work Phone: [facility] Work Phone: US PELVIS TRANSVAGINALon US PELVIS TRANSVAGINAL Interpreted by: Akhil Betts Indication ======== Fertility Testing Impression ========= Anteverted uterus with a trilaminar endometrial lining that measures as below. The ovaries are normal in appearance bilaterally. Uterus ====== Uterus: Visualized Uterus position: anteverted Description of uterine malformations: none Myometrium: normal Endometrium: trilaminar Cervix details: cystic lesions identified suggesting superficial Nabothian cysts Uterus length 69.0 mm Uterus width 42.5 mm Uterus height 29.8 mm Endometrial thickness, total 3.4 mm Right Ovary ========= Rt ovary: Visualized Rt ovary morphology: normal Rt ovary D1 31.6 mm Rt ovary D2 26.6 mm Rt ovary D3 24.7 mm Rt ovary Vol 10.9 cm??? Rt ovarian follicle(s): Follicles identified Rt ovarian follicles other findings: Antral Follicles 10 + < 10 mm Left Ovary ======== Lt ovary: Visualized Lt ovary morphology: normal Lt ovary D1 29.1 mm Lt ovary D2 26.4 mm Lt ovary D3 21.2 mm Lt ovary Vol 8.5 cm??? Lt ovarian follicle(s): Follicles identified Lt ovarian follicles other findings: Antral Follicles 10 + < 10 mm Cul de Sac ========= Visualized. No free fluid visualized Method ====== Transabdominal and transvaginal ultrasound examination. View: Sufficient Normal [facility] 17-Hydroxyprogesteroneon 17-Hydroxyprogesterone [Mass/Vol] 62.29 ng/dL Normal <=206.00 [facility] Comment on above: Result Comment: INTE RPRETIVE INFORMATION for 17-Hydroxyprogesterone in females: Follicular 15 to 70 ng/dL Luteal 35 to 290 ng/dL REFERENCE INTERVAL: 17-Hydroxyprogesterone Qnt, HPLC-MS/MS Access complete set of age- and/or gender-specific reference intervals for this test in the [facility] Test Directory ([employer]). This test was developed and its performance characteristics determined by [facility]. It has not been cleared or approved by the US Food and Drug Administration. This test was performed in a CLIA certified laboratory and is intended for clinical purposes. Performed By: [facility] [address] [place] [address] Variety Saw Operator: Austin Pulliam MD, PhD CLIA Number: [id number] Performed By: #### 2 839-9 #### [place] ([id number]) [facility] ([facility] [address] [place] [address] Blood type and Indirect anti body screen panel (Bld)on 10-22-2024 ABO group Nom (Bld) B Normal [facility] Comment on above: Performed By: #### 3 4532-2 #### SER[place] ([id number]) [facility] ([facility]) [address] [place], [place] [phone] [place] Blood group antibody screen Ql Negative [facility] Comment on above: Performed By: #### 3 4532-2 #### [place] ([id number]) [facility] ([facility]) [address] [place], [place] [phone] [place] D Ag Ql (Bld) Positive [facility] Comment on above: Performed By: #### 3 4532-2 #### [place] ([id number]) [facility] ([facility]) [address] [place] [address] [place] C. trachomatis and N. gonorr hoeae DNA ASHLEY+probe Nom (Unsp spec)on 10-22-2024 C. trachomatis rRNA ASHLEY+probe Ql (Unsp spec) Negative Normal Negative [facility] Comment on above: Order Comment: REF V ALUES Male <0.2-0.8 Follicular Phase <0.2-1.5 Luteal Phase 7.4-15.4 Post Menopausal <0.2-0.2 1ST Trimester 12.0-84.0 2ND Trimester 10.2-58.8 3RD Trimester 46.5-160 Progesterone is performed using the Brenda [employer] Access Immunoassay. Progesterone testing is performed using a different test methodology at [facility] than other [facility]. Direct result comparison should only be made within the same method. Performed By: #### 2 839-9 #### SERG [place] ([id number]) [facility] ([facility] [address] [place] [address] N. gonorrhoeae DNA Probe+sig amp Ql (Unsp spec) Negative Normal Negative [facility] Comment on above: Order Comment: REF V ALUES Male <0.2-0.8 Follicular Phase <0.2-1.5 Luteal Phase 7.4-15.4 Post Menopausal <0.2-0.2 1ST Trimester 12.0-84.0 2ND Trimester 10.2-58.8 3RD Trimester 46.5-160 Progesterone is performed using the Brenda [employer] Access Immunoassay. Progesterone testing is performed using a different test methodology at [facility] than other [facility]. Direct result comparison should only be made within the same method. Performed By: #### 2 839-9 #### [place] ([id number]) [facility] ([facility] [address] [phone] Dehydroepiandrosterone sulfa jerman 10-22-2024 DHEA-S [Mass/Vol] 252 ug/dL Normal 65-395 [facility] Comment on above: Order Comment: [facility] REFERENCE RANGES: PUBERTAL (STEVIE) STAGE MALE FEMALE I 5 - 265 5 - 125 II 15 - 380 15 - 150 III 60 - 505 20 - 535 IV 65 - 560 35 - 485 V 165 - 500 75 - 530 Biotin interference may cause falsely elevated results. Patients taking a Biotin dose of up to 5 mg/day should refrain from taking Biotin for 24 hours before sample collection. Providers may contact their local laboratory for further information. Performed By: #### 2 191-5 #### TRANG Enriquez ([id number]) [facility] ([facility]) [address] [place] [address] HIV 1+2 Ab+HIV1 p24 Agon HIV 1+2 Ab+HIV1 p24 Ag IA Ql Non-Reactive Normal Nonreactive [facility] Comment on above: Order Comment: REF V ALUES Male <0.2-0.8 Follicular Phase <0.2-1.5 Luteal Phase 7.4-15.4 Post Menopausal <0.2-0.2 1ST Trimester 12.0-84.0 2ND Trimester 10.2-58.8 3RD Trimester 46.5-160 Progesterone is performed using the Brenda CoreXchange Access Immunoassay. Progesterone testing is performed using a different test methodology at [facility] than other [facility]. Direct result comparison should only be made within the same method. Performed By: #### 2 839-9 #### SER[place] ([id number]) [facility] ([facility] [address] [place] [address] HbA1c (Bld) [Mass fraction]o n 01-07-2025 Average glucose Estimated from glycated hemoglobin (Bld) [Mass/Vol] 103 mg/dL Normal Not Established [facility] Comment on above: Order Comment: Diagn osis of Diabetes-Adults Non-Diabetic: < or = 5.6% Increased risk for developing diabetes: 5.7-6.4% Diagnostic of diabetes: > or = 6.5% Performed By: #### 4 548-4 #### TRANG Enriquez ([id number]) [facility] ([facility]) [address] [place] [address] Hemoglobin A1c/Hemoglobin.to julio 10-22-2024 HbA1c (Bld) [Mass fraction] 5.2 % Normal See comment [facility] Comment on above: Order Comment: Diagn osis of Diabetes-Adults Non-Diabetic: < or = 5.6% Increased risk for developing diabetes: 5.7-6.4% Diagnostic of diabetes: > or = 6.5% Performed By: #### 4 548-4 #### TRANG Enriquez ([id number]) [facility] ([facility]) [address] [place] [address] Hepatitis B virus surface Ag on 10-22-2024 HBV surface Ag IA Ql Non-Reactive Normal Nonreactive [facility] Comment on above: Result Comment: Biot in interference may cause falsely decreased results. Patients taking a Biotin dose of up to 5 mg/day should refrain from taking Biotin for 24 hours before sample collection. Providers may contact their local laboratory for further information. Performed By: #### 5 196-1 #### TRANG Enriquez ([id number]) [facility] ([facility]) [address] [place] [address] Hepatitis C virus Abon 10-22 HCV Ab Ql (S) Non-Reactive Normal Nonreactive [facility] Comment on above: Result Comment: Resu lts from patients taking biotin supplements or receiving high-dose biotin therapy should be interpreted with caution due to possible interference with this test. Providers may contact their local laboratory for further information. Performed By: #### 1 6128-1 #### TRANG Enriquez ([id number]) [facility] ([facility]) [address] [phone] Mullerian inhibiting substan ceon 10-22-2024 Mullerian inhibiting substance [Mass/Vol] 16.055 ng/mL High 0.401-16.015 [facility] Comment on above: Result Comment: INTE RPRETIVE INFORMATION: Anti-Mullerian Hormone FEMALE: 6 months - 14 years: 0.256 - 6.345 ng/mL 15-17 years: 0.861 - 10.451 ng/mL 18-29 years: 0.401 - 16.015 ng/mL 30-39 years: 0.176 - 11.705 ng/mL 40-45 years: 6.282 ng/mL or less 46-50 years: 0.064 ng/mL or less Post-menopausal: 0.003 ng/mL or less MALE: 6-11 months: 56.677 - 495.299 ng/mL 1-6 years: 33.442 - 342.450 ng/mL 7-9 years: 20.245 - 189.781 ng/mL 10-12 years: 2.903 - 178.243 ng/mL 13 years and older: 2.079 - 30.656 ng/mL This test was developed and its performance characteristics determined by [facility]. It has not been cleared or approved by the US Food and Drug Administration. This test was performed in a CLIA certified laboratory and is intended for clinical purposes. Performed By: [facility] [address] [place] [address] Variety Saw Operator: Austin Pulliam MD, PhD CLIA Number: [id number] Performed By: #### 2 839-9 #### SERG ONDINA ([id number]) [facility] ([facility] [address] [place] [address] Progesteroneon 10-22-2024 Progesterone [Mass/Vol] 0.6 ng/mL Normal [facility] Comment on above: Order Comment: REF V ALUES Male <0.2-0.8 Follicular Phase <0.2-1.5 Luteal Phase 7.4-15.4 Post Menopausal <0.2-0.2 1ST Trimester 12.0-84.0 2ND Trimester 10.2-58.8 3RD Trimester 46.5-160 Progesterone is performed using the Brenda [employer] Access Immunoassay. Progesterone testing is performed using a different test methodology at [facility] than other [facility]. Direct result comparison should only be made within the same method. Performed By: #### 2 839-9 #### SERG [place] ([id number]) [facility] ([facility] [address] [place] [address] Prolactinon 10-22-2024 Prolactin [Mass/Vol] 7.3 ug/L Normal 3.0-20.0 [facility] Comment on above: Performed By: #### 2 842-3 #### TRANG Enriquez ([id number]) [facility] ([facility]) [id number] [place] [address] Rubella virus IgG IA Qnon Rubella virus IgG IA Ql Equivocal Normal Negative [facility] Comment on above: Order Comment: NEGAT SHUBHAM: No IgG antibodies specific to Rubella detected. It is likely that the patient has not had a previous exposure to Rubella through infection or vaccination. Alternatively, the patient may have been exposed to Rubella but a failure to respond may indicate immunodeficiency. EQUIVOCAL: Equivocal results; obtain an additional sample for re-testing POSITIVE: IgG antibody to Rubella detected. This may indicate that the patient was exposed to Rubella through infection or vaccination. Performed By: #### 5 334-8 #### TRANG Enriquez ([id number]) [facility] ([facility]) [id number] [place] [address] Rubella virus IgG Qn (S) 0.9 IA Normal <=0.7 [facility] Comment on above: Order Comment: NEGAT SHUBHAM: No IgG antibodies specific to Rubella detected. It is likely that the patient has not had a previous exposure to Rubella through infection or vaccination. Alternatively, the patient may have been exposed to Rubella but a failure to respond may indicate immunodeficiency. EQUIVOCAL: Equivocal results; obtain an additional sample for re-testing POSITIVE: IgG antibody to Rubella detected. This may indicate that the patient was exposed to Rubella through infection or vaccination. Performed By: #### 5 334-8 #### TRANG Enriquez ([id number]) [facility] ([facility]) [address] [phone] TSH WITH REFLEX TO FREE T4 I F ABNORMALon 10-22-2024 TSH Qn 1.34 m[IU]/L Normal 0.44-3.98 [facility] Comment on above: Order Comment: TSH t esting is performed using different testing methodology at [facility] than at other [facility]. Direct result comparisons should only be made within the same method. Performed By: #### T JACQUELIN #### SERG [place] ([id number]) [facility] ([facility] [address] [place] [address] Testosterone Free/Testostero ne.total [Mass fraction]on 10-22-2024 Testosterone [Mass/Vol] 44 ng/dL Normal 2-45 [facility] Comment on above: Result Comment: For additional information, please refer to http://education.Vicarious/faq/ [email or web address] (This link is being provided for informational/ educational purposes only.) This test was developed and its analytical performance characteristics have been determined by [facility] [place] [place]. It has not been cleared or approved by the U.S. Food and Drug Administration. This assay has been validated pursuant to the CLIA regulations and is used for clinical purposes. Performed By: #### 2 839-9 #### SERG [place] ([id number]) [facility] ([facility] [address] [phone] Testosterone Free [Mass/Vol] 4.7 pg/mL Normal 0.1-6.4 [facility] Comment on above: Result Comment: This test was developed and its analytical performance characteristics have been determined by [facility] [place] [place]. It has not been cleared or approved by the U.S. Food and Drug Administration. This assay has been validated pursuant to the CLIA regulations and is used for clinical purposes. Performed By: #### 2 839-9 #### SERG [place] ([id number]) [facility] ([facility] [address] [id number] Treponema pallidum Ab.IgG+Ig Mon 10-22-2024 T. pallidum IgG+IgM IA Ql (S) Non-Reactive Normal Nonreactive [facility] Comment on above: Result Comment: No s ignificant level of Treponema pallidum antibody detected. Repeat testing in 2 to 4 weeks may be considered if early infection or incubating syphilis infection is suspected. Performed By: #### 2 839-9 #### SERG [place] ([id number]) [facility] ([facility] [address] [place] [address] VZV IgG IA Ql (S)on 10-22-19 25 VARICELLA ZOSTER IGG INDEX 2.5 IA High <=0.8 [facility] Comment on above: Order Comment: NEGAT SHUBHAM: No IgG antibodies specific to VZV detected. It is likely that the patient has not had a previous exposure to VZV through infection or vaccination. Alternatively, the patient may have been exposed to VZV but a failure to respond may indicate immunodeficiency. EQUIVOCAL:Equivocal results; obtain additional sample for retesting. POSITIVE: IgG antibody to VZV detected. This may indicate that the patient was exposed to VZV through infection or vaccination. The interpretation of serological tests should take into account the immunological status of the patient. Test results for patients, including immunocompromised patients, neonates, and pediatric patients, reflect their capacity to respond immunologically to the virus as well as their exposure to the pathogen. Patients treated with IVIG may demonstrate altered results in serological assays. Performed By: #### 1 5410-4 #### TRANG Enriquez ([id number]) [facility] ([facility]) [address] [place] [address] Varicella zoster virus Ab.Ig Jorge 10-22-2024 VZV IgG IA Ql (S) Positive Abnormal Negative [facility] Comment on above: Order Comment: NEGAT SHUBHAM: No IgG antibodies specific to VZV detected. It is likely that the patient has not had a previous exposure to VZV through infection or vaccination. Alternatively, the patient may have been exposed to VZV but a failure to respond may indicate immunodeficiency. EQUIVOCAL:Equivocal results; obtain additional sample for retesting. POSITIVE: IgG antibody to VZV detected. This may indicate that the patient was exposed to VZV through infection or vaccination. The interpretation of serological tests should take into account the immunological status of the patient. Test results for patients, including immunocompromised patients, neonates, and pediatric patients, reflect their capacity to respond immunologically to the virus as well as their exposure to the pathogen. Patients treated with IVIG may demonstrate altered results in serological assays. Performed By: #### 1 5410-4 #### TRANG Enriquez ([id number]) [facility] ([facility]) [address] [place] [address] Comp Metabolic Panelon 10-21 Albumin [Mass/Vol] 4.8 g/dL Normal 3.9-4.9 [facility] Comment on above: Performed By: #### I NSULN, DHEAS #### [place] [id number] [place] [address] ALP [Catalytic activity/Vol] 64 U/L Normal 34-123 [facility] Comment on above: Performed By: #### I NSULN, DHEAS #### [place] [phone] ALT [Catalytic activity/Vol] 20 U/L Normal 7-38 [facility] Comment on above: Performed By: #### I NSULN, DHEAS #### [place] [id number] [place] [phone] Anion gap [Moles/Vol] 12 mmol/L Normal 9-18 [facility] Comment on above: Performed By: #### I NSULN, DHEAS #### [place] [id number] [place] [id number] AST [Catalytic activity/Vol] 16 U/L Normal 13-35 [facility] Comment on above: Performed By: #### I NSULN, DHEAS #### [facility] [address] [place] [address] Bilirubin [Mass/Vol] 0.4 mg/dL Normal 0.2-1.3 [facility] Comment on above: Performed By: #### I NSULN, DHEAS #### [place] [phone] [place] [address] Calcium [Mass/Vol] 9.3 mg/dL Normal 8.5-10.2 [facility] Comment on above: Performed By: #### I NSULN DHEAS #### [place] [address] Chloride [Moles/Vol] 102 mmol/L Normal 97-105 [facility] Comment on above: Performed By: #### I NSBRIANN, DHEAS #### [place] [address] CO2 [Moles/Vol] 25 mmol/L Normal 22-30 [facility] Comment on above: Performed By: #### I NSELAINE, DHEAS #### [place] [address] Creatinine [Mass/Vol] 0.61 mg/dL Normal 0.58-0.96 [facility] Comment on above: Performed By: #### I NSBRIANN DHEAS #### [place] [address] eGFR- Amer. >60 Normal [facility] Comment on above: Performed By: #### I NSELAINE, DHEAS #### [place] [address] eGFR-All Other Races >60 Normal [facility] Comment on above: Result Comment: eGFR [...] website at kidney.org/professionals/kdoqi/gfr_calculator. Performed By: #### I FIORELLA KRISHNAS #### [facility] [address] [place], [place] [address] Glucose [Mass/Vol] 110 mg/dL High 74-99 [facility] Comment on above: Result Comment: The [place] Diabetes Association (ADA) provides guidance for cutoff [...] Standards of Medical Care in Diabetes 2016, [place] [employer]. Diabetes Care. 2016.39(Suppl 1). Performed By: #### I TOMI DHEAS #### [facility] [address] [place], [place] [address] Potassium [Moles/Vol] 3.3 mmol/L Low 3.7-5.1 [facility] Comment on above: Performed By: #### I TOMI DHEAS #### [facility] [address] [place], [place] [address] Protein [Mass/Vol] 7.4 g/dL Normal 6.3-8.0 [facility] Comment on above: Performed By: #### I TOMI DHEAS #### [facility] [address] [place], [place] [address] Sodium [Moles/Vol] 139 mmol/L Normal 136-144 [facility] Comment on above: Performed By: #### I TOMI DHEAS #### [place] [id number] [place] [phone] Urea nitrogen [Mass/Vol] 12 mg/dL Normal 7-21 [facility] Comment on above: Performed By: #### I TOMI DHEAS #### [place] [id number] DHEA-Son 10-21-2021 DHEA-S 333.3 ug/dL Normal 148.0-407.0 [facility] Comment on above: Result Comment: Refe rence ranges are age and gender specific. For additional information, reference range tables can be found in the laboratory test directory. The normal values are based on the following source: Dehydroepiandrosterone sulfate (DHEA S) [package insert V 17.0 [employer]]. [employer]oy [employer], [place], [place]: May 2013. Performed By: #### I TOMI DHEAS #### [place] [address] Insulinon 10-21-2021 Insulin 17.1 mU/L Normal 3.0-25.0 [facility] Comment on above: Performed By: #### Delilah KRISHNA DHEAS #### [place] [id number] Testosterone, Tot/Fron 10-21 Testosterone [Mass/Vol] 50 ng/dL Normal 8-60 [facility] Comment on above: Result Comment: (NOT E) ADDITIONAL INFORMATION Testing performed by Liquid Chromatography-Tandem Mass Spectrometry (LC-MS/MS). This test was developed and its performance characteristics determined by [facility] in a manner consistent with CLIA requirements. This test has not been cleared or approved by the U.S. Food and Drug Administration. Performed By: #### T FTEST #### [facility] [address] [place] [address] Testosterone, Free 0.60 ng/dL Normal 0.06-1.08 [facility] Comment on above: Result Comment: (NOT E) ADDITIONAL INFORMATION Testing performed by [facility]. This test was developed and its performance characteristics determined by [facility] in a manner consistent with CLIA requirements. This test has not been cleared or approved by the U.S. Food and Drug Administration. Performed By: #### T FTEST #### [facility] [address] [place] [address] Cesar 10-04-2021 CNPN Telephone (ENDOMN) FRANCESCO VICENTE ([id number]) 1995 F Date Time Provider Department 10/04/21 LIZZY VANCE During your visit today, we recorded the following information about you: Wilfred Sanchez 10/04/2021 1:20 PM Signed Release form, PCOS note,s and tumor marker lab re-indexed to chart. Allergies As of Date: 10/04/2021 (Not on File) Date Reviewed: Never Reviewed Reason for Visit: Received Outside Medical Records [[id number]] Cmt: PCOS notes, tumor marker lab, release form Problem List As Of Date: 10/04/2021 (None) Encounter Status:Closed by WILFRED SANCHEZ on 11/12/21 Normal [facility] 17-[place] PROGESTERONE, LC/MSon 09-09-2021 17-OH Progesterone LCMS 94 ng/dL Normal T [facility] Comment on above: Result Comment: Adul t Female Follicular 15 - 70 Luteal 35 - 290 Performed By: #### P ROGLCM #### [facility] [address] [place] [address] Dr. Jae Smith US PELVIS AND TRANSVAGon US PELVIS AND TRANSVAG EXAMINATION: US P RICHARDSON AND TRANSVAG HISTORY: Oligomenorrhea COMPARISON: No relevant [...] by: ROMELIA GATICA Date: 2021-09-07 14:08 Normal [facility] DHEA-SULFATEon 09-05-2021 DHEA-Sulfate 475.0 ug/dL Critically high 110.0-431.7 [facility] Comment on above: Performed By: #### D HEMANNY #### [facility] [address] [place] [address] Dr. Jae Smith FSHon 09-05-2021 FSH 6.2 mIU/mL Normal [facility] Comment on above: Result Comment: Adul t Female: Follicular phase 3.5 - 12.5 Ovulation phase 4.7 - 21.5 Luteal phase 1.7 - 7.7 Postmenopausal 25.8 - 134.8 Performed By: #### L [facility] #### [facility] [address] [place] [address] Dr. Jae Smith LUTEINIZING HORMONE (LH)on 11-05-2020 LH 21.7 mIU/mL Normal [facility] Comment on above: Result Comment: Adul t Female: Follicular phase 2.4 - 12.6 Ovulation phase 14.0 - 95.6 Luteal phase 1.0 - 11.4 Postmenopausal 7.7 - 58.5 Performed By: #### L BCLH #### [facility] [address] [place] [address] Dr. Jae Smith PROLACTINon 09-05-2021 Prolactin 38.9 ng/mL Critically high 4.8-23.3 [facility] Comment on above: Performed By: #### P ROLAC #### [facility] [address] [place] [address] Dr. Jae Smith TESTOSTERONE, TOTALon 2020 Testosterone [Mass/Vol] 79 ng/dL Critically high 13-71 [facility] Comment on above: Performed By: #### T ESTTOT #### [facility] [address] [place] [address] Dr. Jae Smith TSHon 09-04-2021 TSH 1.687 uIU/mL Normal 0.470-4.680 [facility] Comment on above: Performed By: #### T SH #### [facility] [address] [place] [address] Dr. Jae Smith TSH RANGE SEE BELOW Normal [facility] Comment on above: Result Comment: <0.3 4 UIU/ml HYPERTHYROID 0.34-5.60 UIU/ml EUTHYROID >5.60 UIU/ml HYPOTHYROID Performed By: #### T SH #### [facility] [address] [place] [address] Dr. Jae Smith Auth for Release of Medical Recordson 01-26-2021 Auth for Release of Medical Records [id number] :127 Normal [facility] Chlam Amp RNAon 10-25-2017 Chlam Amp RNA Negative Normal Negative [facility] Comment on above: Result Comment: Holo gic? [...] Performance characteristics for this assay on specific tsz-LZQ-jmyqhwms sample types (female urine) have been validated by [facility]. Performance has not been evaluated for patients less than 14 years of age. Results should be interpreted in conjunction with other clinical information. GC AMP RNAon 10-25-2017 GC Amp RNA Negative Normal Negative [facility] RUMon 10-25-2017 Bilirubin (total) Negative Normal [facility] Blood Negative Normal Negative [facility] Glucose mass conc Negative Normal Negative [facility] Leukocyte Falguni Negative Normal Negative [facility] Comment on above: Result Comment: Test ing performed by [facility] ED/ Lab Protein Negative Normal Negative [facility] Ur Appearance Clear Normal Clear [facility] Urine Comment MICR N/A Normal [facility] Urine Spec Norman 1.020 Normal 1.010 [facility] Urine, color Yellow Normal Yellow [facility] Urine, ketones presence Negative Normal Negative [facility] Urine, nitrite presence Negative Normal Negative [facility] Urine, pH 6.0 [pH] Normal 4.8 - 8.0 [facility] Urine, urobilinogen 0.2 {Seun'U}/dL Normal <1.0 [facility] U Pregon 10-25-2017 HCG.beta subunit ( test) Ql (U) Negative Normal Negative [facility] Comment on above: Result Comment: Test ing performed by [facility] ED/ Lab Wet Prepon 10-25-2017 Wet Prep SOURCE: Vag (Few Whi te Blood Cells No clue cells seen. No yeast seen. No Trichomonas seen.) Normal [facility] Vital Signs Date Time Vital Sign Value Performing Clinician Faci lity 12-30-2024 09:27-0400 Body height 165.1 cm Rui Sapp APRN-LINSEED OIL PRESS TENDER Work Phone: [facility] 12-30-2024 09:27-0400 Body mass index (BMI) [Ratio] 25.79 kg/m2 Rui Sapp APRN-[employer]SEED OIL PR[employer] TENDER Work Phone: [facility] 12-30-2024 09:27-0400 Body weight 70.31 kg Rui Sapp APRN-[employer]SEED OIL PR[employer] TENDER Work Phone: [facility] 10-22-2024 10:16-0500 Body height 165.1 cm Rui Sapp AWS CONSULTANT-[employer]SEED O[employer] PR[employer] TENDER Work Phone: [facility] 10-22-2024 10:16-0500 Body mass index (BMI) [Ratio] 27.96 kg/m2 Rui Sapp AWS CONSULTANT-[employer] T[employer]ER Work Phone: [facility] 10-22-2024 10:16-0500 Body weight 76.2 kg Rui Sapp AWS CONSULTANT-[employer] T[employer]ER Work Phone: [facility] 10-22-2024 10:16-0500 Diastolic blood pressure 82 mm[Hg] Rui Sapp AWS CONSULTANT-[employer] PR[employer] TENDER Work Phone: [facility] 10-22-2024 10:16-0500 Heart rate 69 /min Rui Sapp AWS CONSULTANT-[employer] T[employer]ER Work Phone: [facility] 10-22-2024 10:16-0500 Systolic blood pressure 118 mm[Hg] Rui Sapp AWS CONSULTANT-[employer] T[employer]ER Work Phone: [facility] Encounters Encounter Date Encounter Type Care Provider Facility Start: 01-10-2025 End: 01-10-2025 ambulatory [facility] Start: 01-09-2025 End: 01-09-2025 ambulatory [facility] Start: 01-08-2025 End: 01-08-2025 ambulatory [facility] Start: 01-07-2025 End: 01-07-2025 ambulatory R[facility] Start: 01-06-2025 End: 01-06-2025 ambulatory [facility] Start: 01-03-2025 End: 01-03-2025 ambulatory [facility] Start: 12-30-2024 End: 12-30-2024 Telemedicine consultation with patient Rui Sapp [employer] CONSULTANT-[employer] Work Phone: [facility] Comment on above: Female infertility ( Primary Dx); Irregular menses Start: 12-30-2024 End: 12-30-2024 ambulatory RUI SAPP [facility] Start: 11-25-2024 End: 11-25-2024 ambulatory RUI SAPP [facility] Start: 11-25-2024 End: 11-25-2024 Subsequent hospital visit by physician Jae Perez [facility] Comment on above: Fertility testing Start: 11-25-2024 End: 11-25-2024 ambulatory RUI SAPP [facility] Start: 10-22-2024 End: 10-22-2024 ambulatory RUI SAPP [facility] Start: 10-22-2024 End: 10-22-2024 Patient encounter procedure Rui Sapp AWS CONSULTANT-[employer] Work Phone: [facility] Comment on above: Female infertility ( Primary Dx); Screening for thyroid disorder; Fertility testing; Oligomenorrhea, unspecified type; Screening for diabetes mellitus; Encounter for screening for other viral diseases; Encounter for Rh blood typing; Screening for STDs (sexually transmitted diseases); Screening for genetic disease carrier status; Encounter for preprocedural laboratory examination Start: 10-22-2024 End: 10-22-2024 Patient encounter status Rui Sapp AWS CONSULTANT-[employer] T[employer] Work Phone: [facility] Work Phone: Start: 10-22-2024 End: 10-22-2024 ambulatory RUI SAPP [facility] Start: 10-22-2024 End: 10-22-2024 Encounter for blood typing RUI SAPP [facility] Start: 10-22-2024 End: 10-22-2024 Encounter for preprocedural laboratory examination RUI SAPP [facility] Start: 11-01-2023 End: 11-01-2023 ambulatory JENAE DAVEY Not Available Start: 03-19-2022 End: 03-19-2022 ambulatory Lizzy Vance MD Work Phone: Endocrinology Comment on above: Impaired fasting glu cose (Primary Dx); Hyperandrogenism Start: 03-19-2022 End: 03-19-2022 Telemedicine consultation with patient Lizzy Vance MD Work Phone: [facility] Start: 09-06-2021 End: 09-07-[address] WILLIAM CHACON Facility:[facility] Start: 09-04-2021 End: 09-05-[address] WILLIAM CHACON Facility:[facility] Start: 10-25-2017 End: 10-25-2017 Ambulatory [facility] Start: 10-25-2017 Ambulatory Facility:[id number] Procedures Date Procedure Procedure Detail Performing Clinician Start: 11-25-2024 Cath & saline/contra st sonohyster/hysterosalpi Elissa Mcintyre AWS CONSULTANT-[employer] T[employer]ER Work Phone: Plan of Treatment Date Care Activity Detail Author Start: 2047 Zoster Vaccines (1 of 2) Zoster Vaccines (1 of 2) [facility] Start: 04-17-2025 End: 04-17-2025 Patient encounter procedure 04/17/2025 8:00 AM EDT Consult [facility] [address] [place] [address] Sydnee Covington MD [address] [place] [phone] [facility] Start: 12-30-2024 End: 12-30-2025 [facility] HCG, TOTAL, QN [facility] HCG, TOTAL, QN Lab STAT Irregular menses Expected: 12/30/2024 (Approximate), Expires: 12/30/2025 [facility] Work Phone: Comment on above: Expected: 12/30/2024 (Approximate), Expi res: 12/30/2025 Start: 12-30-2024 End: 12-30-2024 Telemedicine consultation with patient 12/30/2024 10:30 AM EDT Telemedicine [facility] [address] [place] [address] Rui Sapp, AWS CONSULTANT-[employer] TENDER [address] [place] [address] [facility] Start: 11-22-2024 End: 01-20-2025 Choriogonadotropin ( test) [Presence] in Urine POCT , urine manually resulted Point of Care Testing Routine Encounter for preprocedural laboratory examination Expected: 11/22/2024 (Approximate), Expires: 01/20/2025 [facility] Work Phone: Comment on above: Expected: 11/22/2024 (Approximate), Expi res: 01/20/2025 Start: 11-22-2024 End: 10-22-2025 Hysterosalpingogram (HSG) Hysterosalpingogram (HSG) Procedures Routine Fertility testing Expected: 11/22/2024 (Approximate), Expires: 10/22/2025 [facility] Work Phone: Comment on above: Expected: 11/22/2024 (Approximate), Expi res: 10/22/2025 Start: 11-22-2024 End: 10-22-2025 XR Pelvis Views [place] hysterosalpingogram Imaging Routine Fertility testing Expected: 11/22/2024 (Approximate), Expires: 10/22/2025 [facility] Work Phone: Comment on above: Expected: 11/22/2024 (Approximate), Expi res: 10/22/2025 Start: 10-22-2024 End: 10-22-2025 17-Hydroxyprogesterone [Mass/volume] in Serum or Plasma 17-Hydroxyprogesterone Lab Routine Oligomenorrhea, unspecified type Expected: 10/22/2024 (Approximate), Expires: 10/22/2025 [facility] Work Phone: Comment on above: Expected: 10/22/2024 (Approximate), Expi res: 10/22/2025 Start: 10-22-2024 End: 10-22-2025 Blood type and Indirect antibody screen panel - Blood Type And Screen Lab Routine Encounter for Rh blood typing Expected: 10/22/2024 (Approximate), Expires: 10/22/2025 [facility] Work Phone: Comment on above: Expected: 10/22/2024 (Approximate), Expi res: 10/22/2025 Start: 10-22-2024 End: 10-22-2025 Chlamydia trachomatis and Neisseria gonorrhoeae DNA [Identifier] in Unspecified specimen by ASHLEY with probe detection C. trachomatis / N. gonorrhoeae, Amplified Lab Routine Screening for STDs (sexually transmitted diseases) Expected: 10/22/2024 (Approximate), Expires: 10/22/2025 [facility] Work Phone: Comment on above: Expected: 10/22/2024 (Approximate), Expi res: 10/22/2025 Start: 10-22-2024 End: 10-22-2025 Dehydroepiandrosterone sulfate (DHEA-S) [Mass/volume] in Serum or Plasma Dhea-Sulfate Lab Routine Oligomenorrhea, unspecified type Expected: 10/22/2024 (Approximate), Expires: 10/22/2025 [facility] Work Phone: Comment on above: Expected: 10/22/2024 (Approximate), Expi res: 10/22/2025 Start: 10-22-2024 End: 10-22-2025 Hemoglobin A1c/Hemoglobin.total in Blood Hemoglobin A1C Lab Routine Screening for diabetes mellitus Expected: 10/22/2024 (Approximate), Expires: 10/22/2025 [facility] Work Phone: Comment on above: Expected: 10/22/2024 (Approximate), Expi res: 10/22/2025 Start: 10-22-2024 End: 10-22-2025 Hepatitis B virus surface Ag [Presence] in Serum or Plasma by Immunoassay Hepatitis B surface antigen Lab Routine Screening for STDs (sexually transmitted diseases) Expected: 10/22/2024 (Approximate), Expires: 10/22/2025 [facility] Work Phone: Comment on above: Expected: 10/22/2024 (Approximate), Expi res: 10/22/2025 Start: 10-22-2024 End: 10-22-2025 Hepatitis C virus Ab [Presence] in Serum Hepatitis C Antibody Lab Routine Screening for STDs (sexually transmitted diseases) Expected: 10/22/2024 (Approximate), Expires: 10/22/2025 [facility] Work Phone: Comment on above: Expected: 10/22/2024 (Approximate), Expi res: 10/22/2025 Start: 10-22-2024 End: 10-22-2025 HIV 1+2 Ab+HIV1 p24 Ag [Presence] in Serum or Plasma by Immunoassay HIV 1/2 Antigen/Antibody Screen with Reflex to Confirmation Lab Routine Screening for STDs (sexually transmitted diseases) Expected: 10/22/2024 (Approximate), Expires: 10/22/2025 [facility] Work Phone: Comment on above: Expected: 10/22/2024 (Approximate), Expi res: 10/22/2025 Start: 10-22-2024 End: 10-22-2025 Mullerian inhibiting substance [Mass/volume] in Serum or Plasma Antimullerian Hormone (Amh) Lab Routine Fertility testing Expected: 10/22/2024 (Approximate), Expires: 10/22/2025 [facility] Work Phone: Comment on above: Expected: 10/22/2024 (Approximate), Expi res: 10/22/2025 Start: 10-22-2024 End: 10-22-2025 Myriad Foresight Carrier Screen Myriad Foresight Carrier Screen Lab Routine Screening for genetic disease carrier status Expected: 10/22/2024 (Approximate), Expires: 10/22/2025 [facility] Work Phone: Comment on above: Expected: 10/22/2024 (Approximate), Expi res: 10/22/2025 Start: 10-22-2024 End: 10-22-2025 Progesterone [Mass/volume] in Serum or Plasma Progesterone Lab Routine Fertility testing Expected: 10/22/2024 (Approximate), Expires: 10/22/2025 [facility] Work Phone: Comment on above: Expected: 10/22/2024 (Approximate), Expi res: 10/22/2025 Start: 10-22-2024 End: 10-22-2025 Prolactin [Mass/volume] in Serum or Plasma Prolactin Lab Routine Oligomenorrhea, unspecified type Expected: 10/22/2024 (Approximate), Expires: 10/22/2025 [facility] Work Phone: Comment on above: Expected: 10/22/2024 (Approximate), Expi res: 10/22/2025 Start: 10-22-2024 End: 10-22-2025 Rubella virus IgG Ab [Units/volume] in Serum Rubella Antibody, Igg Lab Routine Encounter for screening for other viral diseases Expected: 10/22/2024 (Approximate), Expires: 10/22/2025 [facility] Work Phone: Comment on above: Expected: 10/22/2024 (Approximate), Expi res: 10/22/2025 Start: 10-22-2024 End: 10-22-2025 Testosterone,Free and Total Testosterone,Free and Total Lab Routine Oligomenorrhea, unspecified type Expected: 10/22/2024 (Approximate), Expires: 10/22/2025 [facility] Work Phone: Comment on above: Expected: 10/22/2024 (Approximate), Expi res: 10/22/2025 Start: 10-22-2024 End: 10-22-2025 Treponema pallidum IgG+IgM Ab [Presence] in Serum by Immunoassay Syphilis Screen with Reflex Lab Routine Screening for STDs (sexually transmitted diseases) Expected: 10/22/2024 (Approximate), Expires: 10/22/2025 [facility] Work Phone: Comment on above: Expected: 10/22/2024 (Approximate), Expi res: 10/22/2025 Start: 10-22-2024 End: 10-22-2025 TSH with reflex to Free T4 if abnormal TSH with reflex to Free T4 if abnormal Lab Routine Screening for thyroid disorder Expected: 10/22/2024 (Approximate), Expires: 10/22/2025 [facility] Work Phone: Comment on above: Expected: 10/22/2024 (Approximate), Expi res: 10/22/2025 Start: 10-22-2024 End: 10-22-2025 US Pelvis transvaginal US pelvis transvaginal Imaging Routine Fertility testing Expected: 10/22/2024, Expires: 10/22/2025 [facility] Work Phone: Comment on above: Expected: 10/22/2024, Expires: Start: 10-22-2024 End: 10-22-2025 Varicella zoster virus IgG Ab [Presence] in Serum by Immunoassay Varicella Zoster Antibody, Igg Lab Routine Encounter for screening for other viral diseases Expected: 10/22/2024 (Approximate), Expires: 10/22/2025 [facility] Work Phone: Comment on above: Expected: 10/22/2024 (Approximate), Expi res: 10/22/2025 Start: 06-16-2024 COVID-19 Vaccine ( season) COVID-19 Vaccine ( season) [facility] Start: 06-16-2024 Influenza vaccination Influenza Vaccine (#1) [facility] Start: 06-16-2022 Influenza vaccination INFLUENZA (Season Ended) [facility] Start: 04-30-2022 End: 06-30-2022 Comprehensive metabolic 2000 panel - Serum or Plasma COMP METABOLIC PANEL Lab Routine Impaired fasting glucose Hyperandrogenism Expected: 04/30/2022, Expires: 06/30/2022 [facility] Work Phone: Comment on above: Expected: 04/30/2022, Expires: 2 Start: 04-30-2022 End: 06-30-2022 TESTOSTERONE, FREE AND TOTAL TESTOSTERONE, FREE AND TOTAL Lab Routine Impaired fasting glucose Hyperandrogenism Expected: 04/30/2022, Expires: 06/30/2022 [facility] Work Phone: Comment on above: Expected: 04/30/2022, Expires: 2 Start: 2019 DTaP/Tdap/Td Vaccines (1 - Tdap) DTaP/Tdap/Td Vaccines (1 - Tdap) [facility] Start: 2018 PAP TESTING PAP TESTING [facility] Start: 2018 Screening for malignant neoplasm of cervix [facility] Start: 2016 Hepatitis B Vaccines (1 of 3 - 19+ 3-dose series) Hepatitis B Vaccines (1 of 3 - 19+ 3-dose series) [facility] Start: 2016 Urine microalbumin profile DTAP,TDAP,TD (1 - Tdap) [facility] Start: 2015 HEPATITIS C SCREENING HEPATITIS C SCREENING [facility] Start: 2015 Hepatitis C screening Hepatitis C Screening [facility] Start: 2015 HIV SCREENING HIV SCREENING [facility] Start: 2011 PEDS TO ADULT TRANSITION ANNUAL ASSESSMENT PEDS TO ADULT TRANSITION ANNUAL ASSESSMENT [facility] Start: 2010 Varicella vaccination Varicella Vaccines (1 of 2 - 13+ 2-dose series) [facility] Start: 2009 Adult depression screening assessment DEPRESSION SCREENING [facility] Start: 2009 PEDS TO ADULT TRANSITION INITIAL DISCUSSION PEDS TO ADULT TRANSITION INITIAL DISCUSSION [facility] Start: 2008 HPV VACCINE (1 - 2-dose series) HPV VACCINE (1 - 2-dose series) [facility] Start: 2007 MENINGOCOCCAL B: Consider based on risk (1 of 2 - Risk Bexsero 2-dose series) MENINGOCOCCAL B: Consider based on risk (1 of 2 - Risk Bexsero 2-dose series) [facility] Start: 2002 COVID-19 VACCINE (#1) COVID-19 VACCINE (#1) [facility] Start: 1998 MMR Vaccines (1 of 1 - Standard series) MMR Vaccines (1 of 1 - Standard series) [facility] Start: 1997 HIV screening HIV Screening [facility] Start: 1997 Lipid panel Lipid Panel [facility] Start: 1997 Yearly Adult Physical Yearly Adult Physical [facility] End: 05-01-2025 Progesterone [Mass/volume] in Serum or Plasma Progesterone Lab STAT Irregular menses Daily (including weekends) for 3 Occurrences starting 12/30/2024 until 05/01/2025 [facility] Service Area Work Phone: Comment on above: Daily (including weekends) for 3 Occurre nces starting 12/30/2024 until 05/01/2025 End: 11-25-2024 XR Pelvis Views [facility] Service Area Work Phone: Comment on above: Once for 1 Occurrences starting 11/25/19 until 11/25/2024 Payers Date Payer Category Payer Managed Care (Private) [id number] 2023 Private Health Insurance [id number] 2020 Private Health Insurance [employer] A ETNA CHOICE POS II [id number] 2020-Present [phone] [address] [place] [address] POS [id number] 1997 Unknown [id number] 93 1997 Unknown [id number] 93 1997 Unknown [id number] 259 1997 Unknown [id number] 242 1997 Unknown [id number] 245 1997 Unknown [id number] 245 1997 Unknown [id number] 245 1997 Unknown [id number] 245 1997 Unknown [id number] [facility] 1997 Unknown [id number] [facility] 1997 Unknown [id number] [facility] 1997 Unknown [id number] [facility] 1997 Unknown [id number] [facility] 1997 Unknown [id number] [facility] 1997 Unknown [id number] [facility] 1959 Private Health Insurance [id number] Private Health Insurance [id number] Social History Date Type Detail Facility Tobacco smoking status ILIS Tobacco smoking consumption unknown [facility] Start: 1997 Sex Assigned At Female C [facility] Start: 10-22-2024 Tobacco smoking status ILIS Never smoked tobacco [facility] Work Phone: Start: 10-22-2024 Tobacco use and exposure Smokeless tobacco non-user [facility] Work Phone: Start: 10-22-2024 End: 12-30-2024 Alcoholic beverage intake Lifetime non-drinker (finding) [facility] Work Phone: Start: 10-22-2024 End: 12-30-2024 History of Social function [facility] Work Phone: Start: 10-22-2024 End: 12-30-[address] [facility] Work Phone: Start: 07-10-2024 Gender identity Identifies as female gender (finding) [facility] Work Phone: Start: 07-10-2024 Sexual orientation Heterosexual (queenie villarreal) [facility] Work Phone: Start: 10-12-2024 End: 11-25-2024 Exposure to SARS-CoV-2 (event) Not sure [facility] Start: 12-20-2024 End: 12-30-2024 Exposure to SARS-CoV-2 (event) Unable to assess [facility] NEGATED: Highlighted rowStart: ESTHERF History of tobacco use Passive smoker [facility] Work Phone: Clinical Notes 09-28-2021 to 12-30-2024 Rui Sapp, [facility] - 12/30/2024 10:30 AM Rere Mcintyre, [facility] - 11/25/2024 8:00 AM Coco Mcintyre, [facility] - 11/25/2024 8:00 AM Marilu Sapp, [facility] - 10/22/2024 10:30 AM EST Note Date & Type Note Facility 12-30-2024 History of Present illness Narrative Virtual or Telephone Consent: An interactive audio and video telecommunication system which permits real time communications between the patient (at the originating site) and provider (at the distant site) was utilized to provide this telehealth service MD reviewed, Authorization obtained to share with partner. Follow Up Visit HPI/Boarding Pass Visit Patient is a 29 y.o. female with primary infertility x 2 yrs, s/p 1 unsuccessful cycle Letrozole/TIC, PCOS tendency (does not meet criteria for PCOS), presenting today for follow up visit to discuss test results and bext steps. PRIOR EVALUATION / TREATMENT: Letrozole 2.5 mg/TIC 1 cycle- 2-2023, P4 Level ovulatory @ 14.4 Metformin 500 mg- took < 1 month 2021 Prior Labs Lab Results Date Done AMH: 16.055 (H; Ref range: 0.401 - 16.015 ng/mL) 10/22/2024 TSH: 1.34 (Ref range: 0.44 - 3.98 mIU/L) 10/22/2024 PRL: 7.3 (Ref range: 3.0 - 20.0 ug/L) 10/22/2024 Testosterone: free- 4.7, total- 44 10-22-2024 DHEAS: 252 (Ref range: 65 - 395 ug/dL) 10/22/2024 FSH: No results found for requested labs within last 1825 days. No results found for requested labs within last 1825 days. 17 OHP: 62.29 10-22-2024 HgbA1c: 5.2 (Ref range: See comment %) 10/22/2024 Hepatitis B surface antigen: Nonreactive (Ref range: Nonreactive) 10/22/2024 Hepatitis C antibody: Nonreactive (Ref range: Nonreactive) 10/22/2024 HIV Antigen Antibody screen with reflex: Nonreactive (Ref range: Nonreactive) 10/22/2024 Syphilis screening with reflex: Negative 10/22/2024 GC: Negative (Ref range: Negative) 10/22/2024 CT: Negative (Ref range: Negative) 10/22/2024 Type and Screen: B 10/22/2024 Rh: POS 10/22/2024 Antibody: NEG (Ref range: ) 10-22-2024 Rubella: Equivocal- declined Vaccination today 10/22/2024 Varicella: Positive (A; Ref range: Negative) 10/22/2024 Hemoglobin: No results found for requested labs within last 1825 days. No results found for requested labs within last 1825 days. Hematocrit: No results found for requested labs within last 1825 days. No results found for requested labs within last 1825 days. Creatinine: No results found for requested labs within last 1825 days. No results found for requested labs within last 1825 days. AST:No results found for requested labs within last 1825 days. No results found for requested labs within last 1825 days. ALT:No results found for requested labs within last 1825 days.: No results found for requested labs within last 1825 days. 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 Carriers generally do not experience symptoms. 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 Spouse is also a carrier for this genetic condition. [ ] Genetic carrier testing reviewed and NEGATIVE result noted. Additional actions: [ ] Ok to proceed with next steps, no additional genetic testing or counseling recommended [ ] Awaiting partner testing [ ] Partner testing reviewed and no concordance. Ok to proceed with planned treatments. [ X ] Partner testing reviewed and there is concordance noted, will need Genetic Counseling with Genetics, referral placed. 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 Carriers generally do not experience symptoms. 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 Spouse is a carrier carrier of [id number] disorders. Carriers generally do not experience symptoms. Spouse is negative. 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 Individuals who are homozygous for D444H are expected to have approximately 45-50% of mean normal serum biotinidase enzyme activity, and are unlikely to be affected with biotinidase deficiency or need biotin therapy. Given the couple's combination of results, the current reproductive risk is 1/43,000. Babies who are homozygous for the D444H variant may not be detected via state screening programs: therefore, if the couple has concerns, it is recommended that they follow up with their scout sniper to discuss enzyme testing for the baby, to confirm that it is in the expected range. Other counseling considerations: We discussed that there is an increased likelihood that blood relatives are also carriers for [id number] disorders and/or biotinidase deficiency. The couple was encouraged to discuss the results with family members. For the remainder of the couple's results, we discussed that these results are risk-reducing rather than risk-eliminating. The couple was given the opportunity to ask questions and indicated that all of their questions were answered. The couple was informed that this consultation is specific to tests performed by [facility]. This test does not fully address all inherited forms of intellectual disability, defects and genetic disease; therefore, a family history of any of these conditions may warrant additional testing and genetic counseling. Additional genetic testing should be discussed with the couple separately. The couple is advised to consult with a physician and/or genetic counselor for further medical guidance. Recommendations/Plan: - Given the couple's combined results, additional testing for these conditions is not indicated at this time. 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 The ovaries are normal in appearance bilaterally. Relationship Status: OB Hx: ELEMENTARY READING TUTOR HISTORY Have you ever been diagnosed with a sexually transmitted disease? No Have you ever had Pelvic Inflammatory Disease? No Have you had an abnormal PAP smear? No Date & Result of last PAP smear: 2022- negative Have you ever had an abnormal Mammogram? No Date & result of your last mammogram: NA Do you have pelvic pain? No How many times per week do you have intercourse? 3x/week Do you have pain with intercourse? No Do you use lubricants with intercourse? N/A Do you have pain with bowel movements? No Do you have pain with a full bladder? No MENSTRUAL HISTORY LMP: 11-14-2024 Cycle length: 38 Describe your bleedin days Average Dysmenorrhea: No ENDOCRINE/INFERTILITY HISTORY Duration of infertility: 2 yrs Coital Activity/week: 3x/week Nipple Discharge: No Vision changes: No Headaches: No Excess hair growth: No Excessive hair loss: No Acne: Yes Oily skin: Yes Recent weight change Weight gain: No Weight loss: No Exercise more than 3 times a week: No History reviewed. No pertinent past medical history. History reviewed. No pertinent surgical history. Current Outpatient Medications on File Prior to Visit Medication Sig Dispense Refill PNV no.153/FA/om3/dha/epa/fish ( GUMMIES ORAL) Take 1 capsule by mouth once daily. No current facility-administered medications on file prior to visit. 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 Carriers generally do not experience symptoms. 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 Spouse is a carrier carrier of [id number] disorders. Carriers generally do not experience symptoms. Spouse is negative. SA 11-25-2024: Volume (Semen) >=1.5 mL 2.90 Concentration(Semen) >=15 mill/mL 18.63 Total Motility (Semen) >=40 % 49 Prog. Motility (Semen) >=32 % 39 Non Prog. Motility (Semen) % 11 Total No of Sperm (Semen) >=39 mill 54.03 Total No of Motile (Semen) mill 26.71 Total No of Rnd Cells (Semen) <=5 mill 1.4 Leukocyte (Semen) Negative % Normal (Semen) >=4 % 2.5 Abnormal Boarding Pass Oral TIC/IUI Age: 29 y.o. Provider: Rui Sapp CNP Primary NURSE: Mane Reasons for Treatment: Polycystic Ovarian Syndrome Last BMI 10/22/24 : 27.96 kg/m Medical History No past medical history on file. Date Done Consultation Results/Comments 10/22/2024 Medication Protocol Fertility Plan Update: Letrozole 2.5 mg days 3-7/monitoring/Ovidrel Trigger/IUI + LP Prometrium 100 mg BID PV to start 3 days after IUI x 3 cycles Adjuncts: na Notes: If no success, can revisit plan Procedure Order Placed [] Date Done Female Labs Results/Comments 10/22/2024 T&S (Q 1 Year) ABO: B Rh: POS Antibody: NEG 10-22-2024 AMH 16.055 10-22-2024 TSH 1.34 10/22/2024 Hep B sAg Nonreactive 10/22/2024 Hep C AB Nonreactive 10/22/2024 HIV Nonreactive 10/22/2024 Syphilis Nonreactive 10/22/2024 GC/CT GC: Negative CT: Negative 10/22/2024 Rubella (Q 5 Years) Equivocal 10/22/2024 Varicella (Q 5 Years) Positive (A) PATIENT REFUSED VACCINE 2-14-2025 HSG normal 12-19-2024 Pelvic ultrasound normal 10/22/2024 Carrier Screening [facility] 2bP: Authorization completed Pos 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 Carriers generally do not experience symptoms. 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 Spouse is a carrier carrier of [id number] disorders. Carriers generally do not experience symptoms. Spouse is negative. SA 11-25-2024: 11/25/2024 Semen Analysis Volume(mL): 2.90 Count(million): 18.63 Motility(%): 2.5 Abnormal Motile Count(million): 26.71 MD Completion: Ectopic Risk: No Medically Complex: No Boarding Pass reviewed with Ana Choe LPN and is complete. patient is cleared for fertility treatment: Letrozole 2.5 mg days 3-7/monitoring/Ovidrel Trigger/IUI + LP Prometrium 100 mg BID PV to start 3 days after IUI x 3 cycles. If no success, revisit plan. Rui Sapp CNP 12/30/24 12:25 PM ASSESSMENT 29 y.o. female with primary infertility x 2 yrs, suspected irregular cycles and has missed cycles with the following pertinent medical issues: PCOS tendency with irregular/longer cycles, ^ AMH (no hirsutism, normal ovaries on ultrasound, & normal testosterone levels). COUNSELING Discussed use of luteal phase progesterone. Micronized progesterone (Prometrium) is an oral pill used vaginally to increase absorption to the uterus and decrease systemic side effects. It should be started 3 days post IUI, 4 days post + OPK, or 5 days post HCG trigger. A urine test should be taken approximately two weeks after ovulation, if + stay on the progesterone and call the office, if negative stop the progesterone or it may delay the onset of menses. We discussed that Letrozole is used for ovulation induction and that recent studies have found letrozole is superior to Clomid for ovulation induction in patients with PCOS. We discussed common side effects of Letrozole including headaches, vision changes, hot flashes, mood changes, and breast tenderness. Letrozole is NOT FDA approved for the treatment of infertility and was initially associated with (in some studies) a higher risk of congenital anomalies, although this was not found in a more recent large study of patients taking Letrozole for unexplained infertility. Patients must take a test prior to starting Letrozole each month. We discussed that there is an increased risk of multiple gestation with Letrozole approximately 10% for twins and less than 1% for triplets. Counseled regarding option of selective reduction for higher order multiples. MONITORED CYCLE You will take your oral fertility medications as prescribed cycle days 3-7. When you start the medications, you can also call the office to get set up for a follicle scan. Follicle scans are usually done between cycle days 10-12. It is a vaginal ultrasound. We typically do not perform follicle scans on the weekends, so the schedulers will help you find an appropriate appointment time. The follicle scans are done in the morning and will give us information on how your eggs are growing and how thick the lining of the uterus is. Once the follicles (eggs) are big enough (ripe or mature) we will trigger their release with a one time subcutaneous injection- the nurses will order this for you and show you how to do it when you are here for the follicle scan. We cannot trigger small eggs, only ones that have grown to mature size. The IUI is usually done about 36 hours after the trigger. The nurse will also help you schedule that. Routine Testing [facility]ertility Center STDs Within 1 year Genetic carrier Waiver/Completed T&S Within 1 year AMH Within 1 year TSH Within 1 year Rubella/Varicella Within 5 years BMI Testing Fertility Center CBC Within 1 year CMP Within 1 year HgbA1c Within 1 year Mag, Phos, Vit D <18 Within 1 year MFM > 40 REQ Wt loss consult > 40 OPT PLAN Declined Rubella vaccination today HCG/P4 Level- if both negative, give Provera 10 mg x 10 days- will go for blood work 01-03-2025 after 3:00 pm, likely reach back to patient on the 24th, if starts menses prior to labs then call CD 1 to start cycle set up Ovasitol 1 scoop/packet BID- has taken in the past & done well Engaged MD Take vitamins, vitamin D 2000 IUs daily Discussed that treatment cannot proceed until checklist items are complete. Additional testing for BMI < 18 or > 40: NA. Chart to primary nurse for care coordination and patient check list/education. MD Completion: Ectopic Risk: No Medically Complex: No Intimate Exam Performed: No, an intimate exam was not performed at this encounter. Outstanding Boarding Pass Items: none FOLLOW UP PLAN: pending checklist items: Letrozole 2.5 mg days 3-7/monitoring/Ovidrel Trigger/IUI + LP Prometrium 100 mg BID PV to start 3 days after IUI x 3 cycles If no success, revisit plan Rui Sapp CNP 12/30/24 12:24 PM documented in this encounter [facility] Work Phone: 11-25-2024 Procedure note Associated Ord er(s): Hysterosalpingogram (HSG) Hysterosalpingogram (HSG) Date/Time: 11/25/2024 8:08 AM Performed by: FREDIS Richardson Authorized by: FREDIS Richardson Consent: Consent obtained: Verbal and written Consent given by: Patient Risks, benefits, and alternatives were discussed: yes Risks discussed: Bleeding, infection and pain Alternatives discussed: No treatment Holloway protocol: Procedure explained and questions answered to patient or proxy's satisfaction: yes Relevant documents present and verified: yes Test results available: yes Imaging studies available: yes Required blood products, implants, devices, and special equipment available: yes Site/side marked: no Immediately prior to procedure, a time out was called: yes Patient identity confirmed: Verbally with patient, arm band and hospital-assigned identification number Indications: Indications: Fertility testing Pre-procedure details: Skin preparation: Povidone-iodine Sedation: Sedation type: None Anesthesia: Anesthesia method: None Procedure specific details: Done by this MARY Hysterosalpingogram (HSG) risks, benefits, alternatives, and personnel discussed with patient who agreed to proceed. Procedural time out Done in room where procedure done: Yes Done just before starting procedure: Yes All members of procedural team involved in time-out: Yes Active communication used: Yes All team members agreed on procedure: Yes Patient correctly identified by two identifiers: Yes Correct side and site identified: Yes All needed special equipment/instruments available: Yes Prior to the start of the procedure a time out was taken and the following were verified: The identity of the patient using two patient identifiers. Urine test was performed and was negative. Risks, benefits, and alternatives of the procedure were explained to the patient. Informed consent was obtained. The patient was placed in the dorsal lithotomy position and a sterile speculum was placed in the vagina. The cervix was sterilized with Betadine x 3. The anterior lip of the cervix was grasped with a single-tooth tenaculum. The (balloon/acorn) cannula was then placed in the cervix and secured to the tenaculum. The patient was positioned and images were taken with fluoroscopy as dye was inserted through the cannula. All instruments were then removed. The patient tolerated the procedure well and was discharged home the same day without complications. Uterus: normal contour without filling defects Tubes: bilateral patency with free spill of dye, normal tubal architecture noted, and no loculations present. Based on these findings, my recommendation is: No further follow up required. The patient was counseled regarding the above findings and images were reviewed with patient at the time of the exam. FREDIS Richardson Post-procedure details: Procedure completion: Tolerated well, no immediate complications [facility] Work Phone: 11-25-2024 Procedure note Associated Ord er(s): Hysterosalpingogram (HSG) Hysterosalpingogram (HSG) Date/Time: 11/25/2024 8:08 AM Performed by: FREDIS Richardson Authorized by: FREDIS Richardson Consent: Consent obtained: Verbal and written Consent given by: Patient Risks, benefits, and alternatives were discussed: yes Risks discussed: Bleeding, infection and pain Alternatives discussed: No treatment Holloway protocol: Procedure explained and questions answered to patient or proxy's satisfaction: yes Relevant documents present and verified: yes Test results available: yes Imaging studies available: yes Required blood products, implants, devices, and special equipment available: yes Site/side marked: no Immediately prior to procedure, a time out was called: yes Patient identity confirmed: Verbally with patient, arm band and hospital-assigned identification number Indications: Indications: Fertility testing Pre-procedure details: Skin preparation: Povidone-iodine Sedation: Sedation type: None Anesthesia: Anesthesia method: None Procedure specific details: Done by this MARY Hysterosalpingogram (HSG) risks, benefits, alternatives, and personnel discussed with patient who agreed to proceed. Procedural time out Done in room where procedure done: Yes Done just before starting procedure: Yes All members of procedural team involved in time-out: Yes Active communication used: Yes All team members agreed on procedure: Yes Patient correctly identified by two identifiers: Yes Correct side and site identified: Yes All needed special equipment/instruments available: Yes Prior to the start of the procedure a time out was taken and the following were verified: The identity of the patient using two patient identifiers. Urine test was performed and was negative. Risks, benefits, and alternatives of the procedure were explained to the patient. Informed consent was obtained. The patient was placed in the dorsal lithotomy position and a sterile speculum was placed in the vagina. The cervix was sterilized with Betadine x 3. The anterior lip of the cervix was grasped with a single-tooth tenaculum. The (balloon/acorn) cannula was then placed in the cervix and secured to the tenaculum. The patient was positioned and images were taken with fluoroscopy as dye was inserted through the cannula. All instruments were then removed. The patient tolerated the procedure well and was discharged home the same day without complications. Uterus: normal contour without filling defects Tubes: bilateral patency with free spill of dye, normal tubal architecture noted, and no loculations present. Based on these findings, my recommendation is: No further follow up required. The patient was counseled regarding the above findings and images were reviewed with patient at the time of the exam. FREDIS Richardson Post-procedure details: Procedure completion: Tolerated well, no immediate complications documented in this encounter [facility] Work Phone: 10-22-2024 Note Specimen/kit was sen t to the reference lab. Results will be available through [employer] in a separate procedure. [facility] 10-22-2024 History of Present illness Narrative Visit Type: In Person NEW FERTILITY PATIENT VISIT Referred by: [facility] - Dr. Davey Accompanied today by: Ariana Franklin - Francesco Vicente is a 29 y.o. female who presents with primary infertility x 2 yrs, h/o PCOS diagnosed @ [facility] thru ultrasound with PCO ovaries and normal testosterone, has tried Letrozole/TIC x 1 ovulatory cycle -2023 without success and was placed on Metformin for PCOS in 2021, but stopped after a month Have you had any concerns about your fertility treatments so far? Yes - That nothing is working. What are you goals for today's visit? Dicusss fertility options (specifically IUI). What causes of infertility have been identified on your workup so far? PCOS Past Infertility Treatments: Yes Please summarize your fertility treatments to date. 1. Letrozole (Femara) - Did not work. 2. Metforman - Took for a few months. Stopped taking. Wasn t fully explain what the pill is used for and how it could help me. As far as you are aware, do you have insurance coverage for fertility diagnostic testing and/or fertility treatments? Yes PRIOR EVALUATION / TREATMENT: Letrozole 2.5 mg/TIC 1 cycle- 2-2023, P4 Level ovulatory @ 14.4 Metformin 500 mg- took < 1 month 2021 Hysterosalpingogram: no Saline Infused Sonography: no ELEMENTARY READING TUTOR Pelvic Ultrasound: no Prior Labs Lab Results Date Done AMH: No results found for requested labs within last 1825 days. No results found for requested labs within last 1825 days. TSH: No results found for requested labs within last 1825 days. No results found for requested labs within last 1825 days. PRL: No results found for requested labs within last 1825 days. No results found for requested labs within last 1825 days. Testosterone: No results found for requested labs within last 1825 days. No results found for requested labs within last 1825 days. DHEAS: No results found for requested labs within last 1825 days. No results found for requested labs within last 1825 days. FSH: No results found for requested labs within last 1825 days. No results found for requested labs within last 1825 days. 17 OHP: No results found for requested labs within last 1825 days. No results found for requested labs within last 1825 days. HgbA1c: No results found for requested labs within last 1825 days. No results found for requested labs within last 1825 days. Hepatitis B surface antigen: No results found for requested labs within last 1825 days. No results found for requested labs within last 1825 days. Hepatitis C antibody: No results found for requested labs within last 1825 days. No results found for requested labs within last 1825 days. HIV Antigen Antibody screen with reflex: No results found for requested labs within last 1825 days. No results found for requested labs within last 1825 days. Syphilis screening with reflex: No results found for requested labs within last 1825 days. No results found for requested labs within last 1825 days. GC: No results found for requested labs within last 1825 days. No results found for requested labs within last [address]: No results found for requested labs within last 1825 days. No results found for requested labs within last 1825 days. Type and Screen: No results found for requested labs within last 1825 days. No results found for requested labs within last 1825 days. Rh: No results found for requested labs within last 1825 days. No results found for requested labs within last 1825 days. Antibody: No results found for requested labs within last 1825 days. No results found for requested labs within last 1825 days. Rubella: No results found for requested labs within last 1825 days. No results found for requested labs within last 1825 days. Varicella: No results found for requested labs within last 1825 days. No results found for requested labs within last 1825 days. Hemoglobin: No results found for requested labs within last 1825 days. No results found for requested labs within last 1825 days. Hematocrit: No results found for requested labs within last 1825 days. No results found for requested labs within last 1825 days. Creatinine: No results found for requested labs within last 1825 days. No results found for requested labs within last 1825 days. AST:No results found for requested labs within last 1825 days. No results found for requested labs within last 1825 days. ALT:No results found for requested labs within last 1825 days.: No results found for requested labs within last 1825 days. Relationship Status: Have you ever been ? No How many times have you been ? Have you ever had a miscarriage? No How many times have you had a miscarriage? 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 No Have you ever had Pelvic Inflammatory Disease? No Have you had an abnormal PAP smear? No Date & Result of last PAP smear: 2022- negative Have you ever had an abnormal Mammogram? No Date & result of your last mammogram: NA Do you have pelvic pain? No How many times per week do you have intercourse? 3x/week Do you have pain with intercourse? No Do you use lubricants with intercourse? N/A Do you have pain with bowel movements? No Do you have pain with a full bladder? No MENSTRUAL HISTORY LMP: 09-26-2024 Menarche: Age 15 Contraception: OCP Cycle length: 38 Describe your bleedin days Average Dysmenorrhea: No ENDOCRINE/INFERTILITY HISTORY Duration of infertility: 2 yrs Coital Activity/week: 3x/week Nipple Discharge: No Vision changes: No Headaches: No Excess hair growth: No Excessive hair loss: No Acne: Yes Oily skin: Yes Recent weight change Weight gain: No Weight loss: No Exercise more than 3 times a week: No PMH History reviewed. No pertinent past medical history. MEDICATIONS No current outpatient medications on file prior to visit. No current facility-administered medications on file prior to visit. PSH History reviewed. No pertinent surgical history. PSYCH HISTORY Have you ever been diagnosed with a mental health Issue? No Have you ever been hospitalized for a mental health disorder? 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 No Do you have a history of domestic violence? No Do you feel safe at home? Yes Do you have a history of any negative sexual experience such as incest or rape? 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 2022 FAMILY HISTORY No family history on file. CANCER HISTORY Breast: No Ovarian: No Colon: No Endometrial: No FAMILY VTE HISTORY Family History of Blood Clots: No GENETIC HISTORY Ethnic Background Patient: White Partner: White Genetic Disease in Family Patient: No Partner: No Defects in Family Patient: No Partner: No Genetic screening performed previously: no BMI: BMI Readings from Last 1 Encounters: No data found for BMI VITALS: There were no vitals taken for this visit. ASSESSMENT 29 y.o. female with primary infertility x 2 yrs, suspected irregular cycles and has missed cycles with the following pertinent medical issues: possible PCOS & spouse with poss low sperm count. Partner SA: No Assessment COUNSELING We discussed causes of infertility including hormonal, egg quality issues, structural problems such as endometriosis, adhesions, or tubal problems, uterine factors such as polyps or fibroids, and sperm issues. Reviewed evaluation of such as well. We discussed various methods for achieving in some detail including, ovulation induction, insemination, superovulation and IVF. We discussed that Letrozole is used for ovulation induction and that recent studies have found letrozole is superior to Clomid for ovulation induction in patients with PCOS. We discussed common side effects of Letrozole including headaches, vision changes, hot flashes, mood changes, and breast tenderness. Letrozole is NOT FDA approved for the treatment of infertility and was initially associated with (in some studies) a higher risk of congenital anomalies, although this was not found in a more recent large study of patients taking Letrozole for unexplained infertility. Patients must take a test prior to starting Letrozole each month. We discussed that there is an increased risk of multiple gestation with Letrozole approximately 10% for twins and less than 1% for triplets. Counseled regarding option of selective reduction for higher order multiples. We discussed diagnosis of PCOS and implications for fertility and long-term health including risks of endometrial hyperplasia, obesity, diabetes and cardiovascular disease. Discussed diet and exercise are first-line treatments for PCOS. Medical management may be indicated, particularly for glucose intolerance if that is found in testing. Ovulation induction is the primary treatment for fertility. Discussed the importance of diet and exercise as first-line treatments for PCOS and particularly the importance of a low-glycemic index diet that emphasizes whole grains, vegetables and fruits, and protein sources while minimizing sugar and processed foods. Discussed that even a small amount of weight loss can have an effect on the symptoms of PCOS and is important for long-term health outcomes. We discussed AMH testing and the patient's AMH level, if applicable. AMH is considered favorable if >1 however this test has many limitations including poor predictive rates of . In randomized control trials such as Time to conceive pts with low AMH levels (<0.7) has similar cumulative rates compared with women that had normal AMH levels. In the MILFORDS study, AMH did not predict rates following OS/IUI for unexplained infertility. However, AMH is a marker that is helpful to predict how a patient may respond or oocyte yields with FSH and ART treatments, but again there is conflicting data about how this affects rates with ART. INSTRUCTIONS FOR INFERTILITY TESTING Semen Analysis The semen samples that you have been asked to submit are important for diagnostic and therapeutic purposes. Please abstain from ejaculating 2-3 days prior to collecting the sample. The sample should be produced by masturbation. You will need to collect the ejaculate into the container supplied by the [facility] (you can get containers at your doctor's office). Do not use other plastic containers from home such as Tupperware as these containers as they may interfere with the test results. Lubricants and saliva also interfere with test results. If a collection condom is necessary, please request one at the Andrology lab and they will provide you with an appropriate collection condom. It is extremely important that the entire sample is collected in the container as the first few drops of ejaculate contain a major portion of sperm. If you do not collect the entire specimen, please inform the technologist. You can collect at home as long as you can get the sample to the Andrology lab within 1 hour of collecting. Please jannie your name and time of collection on the container. You should carry the container close to your body. Collection rooms are available at all locations as well. An appointment is needed to ensure the lab has enough time to process your specimen. Please call [phone] to schedule this appointment. Hysterosalpingogram (HSG or x-ray dye test) An HSG is a test used to make sure your fallopian tubes are not blocked. This test can only be done between cycle days 5-11, so it is important for you to call as soon as your period starts to schedule an appointment. You should take ibuprofen 30 minutes before your appointment as this test can cause transient cramping. If you are allergic to iodine or shellfish, please inform the sales correspondent. Please call [phone] to schedule this appointment. PELVIC ULTRASOUNDS Please call [phone] to schedule this appointment. Continue to take a vitamin daily (800mcg or 0.8mg folic acid) Please reach out to the office for a plan once all the testing is complete- I am not notified when everything on this list is complete, so please call the office directly to check in. The office number is [phone]. If you are interested in integrative medicine to support your care, please contact [facility] at [phone]. Services available include acupuncture, integrative medicine consultations, massage, meditation and stress management. For acupuncture specifically, please ask for Trang Ledezma (east side) or Ching Colby (west side). We also offer a virtual support group every Monday from 6pm-7pm. For more info please email: For more information and to RSVP, email [email or web address] If you have any questions and wish to review with a member of our team, please do CALL THE OFFICE during business hours. The office number is [phone]. Routine Testing Fertility Center STDs Within 1 year Genetic carrier Waiver/Completed T&S Within 1 year AMH Within 1 year TSH Within 1 year Rubella/Varicella Within 5 years PLAN AMH TSH T&S STDs Prolactin DHEAS 17 OHP/P4 Level Testosterone Rubella/Varicella HgbA1C [facility] Pelvic Ultrasound- call CD 1 to schedule HSG-call CD 1 to schedule Chart to primary nurse for care coordination and patient check list/education Enroll in Engaged MD Take vitamins, vitamin D 2000 IUs daily Discussed that pap and mammogram must be updated per ACOG guidelines before treatment can begin- need copy Discussed that treatment cannot proceed until checklist items are complete 6-8 week virtual follow up with me Additional testing for BMI < 18 or > 40: NA Completion: Ectopic Risk: No Medically Complex: No Partner: SA STDs [facility] FOLLOW UP PLAN: pending checklist items: Letrozole 2.5 mg days 3-7/TIC x 3 cycles with CD 21 P4 Level 1st cycle If no success, can add in monitoring/HCG Trigger/TIC vs IUI + LP P4 support Rui Sapp CNP 10/22/24 11:33 AM documented in this encounter [facility] Work Phone: 03-19-2022 Note HNO ID: [id number] Author: Lizzy Vance MD Service: ? Author Type: Physician Type: Progress Notes Filed: 03/19/2022 8:41 AM Note Text: VIRTUAL VISIT PROGRESS NOTE ? This is a virtual visit using?[employer] video platform.?It required patient-provider interaction for the medical decision making as documented below. ? ? Francesco Vicente is a 26 year old female seen [...] smoking or drinking.?Lives with boyfriend. 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 Never been . ? FAM [...] virtual visit. Will stay in touch by [employer]. Lizzy Vance MD Answers for HPI/ROS submitted [...] Headaches: No Memory Loss: No Seizures: No [facility] 03-19-2022 History of Present illness Narrative VIRTUAL VISIT PROGRESS NOTE This is a virtual visit using [employer] video platform. It required patient-provider interaction for the medical decision making as documented below. Francesco Vicente is a 26 year old female seen [...] drinking. Lives with boyfriend. 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 Never been . FAM HX: [...] virtual visit. Will stay in touch by [employer]. Lizzy Vance MD Answers for HPI/ROS submitted [...] No Seizures: No documented in this encounter [facility] 11-12-2021 Note HNO ID: [id number] Author: Lizzy Vance MD Service: ? Author Type: Physician Type: Progress Notes Filed: 11/12/2021 10:44 AM Note Text: VIRTUAL VISIT PROGRESS NOTE ? This is a virtual visit using [employer] video platform. It required patient-provider interaction for the medical decision making as documented below. ? Francesco Vicente is a 26 year old female seen [...] or drinking. Lives with boyfriend. Works in [employer] ([employer] No children. Never been . ? FAM [...] 6 months. Will stay in touch by [employer]. Lizzy Vance MD ? [facility] 09-28-2021 Note HNO ID: [id number] Author: Lizzy Vance MD Service: ? Author Type: Physician Type: Progress Notes Filed: 09/28/2021 3:53 PM Note Text: VIRTUAL VISIT PROGRESS NOTE This is a virtual visit using [employer] video platform. It required patient-provider interaction for the medical decision making as documented below. Francesco Vicente is a 26 year old female seen [...] or drinking. Lives with boyfriend. Works in [employer] ([employer] No children. Never been . FAM HX: [...] No Cold Intolerance: No Heat Intolerance?: No [facility] Evaluation note Diagnosis Impaired fasting glucose- Primary Hyperandrogenism Other ovarian hyperfunction [facility] Female infertility- Primary Female infertility of unspecified origin Screening for thyroid disorder Fertility testing Oligomenorrhea, unspecified type Screening for diabetes mellitus Encounter for screening for other viral diseases Encounter for Rh blood typing Encounter for blood typing Screening for STDs (sexually transmitted diseases) Screening examination for venereal disease Screening for genetic disease carrier status Encounter for preprocedural laboratory examination documented in this encounter [facility] Work Phone: Evaluation note* Diagnosis Fertility testing documented in this encounter [facility] Work Phone: Evaluation note* Diagnosis Female infertility- Primary Female infertility of unspecified origin Irregular menses Irregular menstrual cycle documented in this encounter 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 Work Phone: Summary Purpose Family History No Family History [...] CREATED AUTHOR 04/10/2018 [facility] DATE CREATED AUTHOR AUTHOR'S ORGANIZ ATION 04/10/2018 [facility] DATE CREATED AUTHOR AUTHOR'S ORGANIZ ATION 01/27/2021 [facility] DATE CREATED AUTHOR AUTHOR'S ORGANIZ ATION 09/16/2021 [facility] DATE CREATED AUTHOR AUTHOR'S ORGANIZ ATION 03/19/2022 [facility] DATE CREATED AUTHOR AUTHOR'S ORGANIZ ATION 11/02/2023 [facility] DATE CREATED AUTHOR AUTHOR'S ORGANIZ ATION 12/01/[address] [facility] DATE CREATED AUTHOR AUTHOR'S ORGANIZ ATION 01/22/2025 [facility] Source Comments (unrecognize d section and content) In the event this informatio n is protected by the Federal Confidentiality of Alcohol and Drug Abuse Patient Records regulations: The Federal rules restrict any use of the information to criminally investigate or prosecute any alcohol or drug abuse patient.[facility] Reason for Visit (unrecogniz ed section and content) Reason Comments High Blood Sugar Reason Comments Infertility Trying for about 2 y ears Reason Comments Follow-up Care Teams (unrecognized sec tion and content) Grease Maker Head Relationship Specialty Start Date End Date Nohemy Martinez LPN Licensed Practical Nurse Reproductive Endocrinology and Infertility 10/22/24 Grease Maker Head Relationship Specialty Start Date End Date Nohemy Martinez LPN Licensed Practical Nurse Reproductive Endocrinology and Infertility 10/22/24 Grease Maker Head Relationship Specialty Start Date End Date Nohemy Martinez LPN Licensed Practical Nurse Reproductive Endocrinology and Infertility 10/22/24 FOR RECORDS PERTAINING TO PATIENTS WHO ARE [...] BE BASED ON THE PRIMARY CLINICAL RECORDS. [employer] [facility]. provides no warranty or guarantee of the accuracy or completeness of information in this document.
--- NOTE | 2025-05-10 23:03 | PC.NURSE ---
Hemorrhoid present, no bleeding at site.
--- NOTE | 2025-05-10 23:25 | ED.GENADUL1 ---
HPI HPI - General Adult General Chief complaint: Urogenital-Female Stated complaint: HEMMEROIDS Time Seen by Provider: 05/10/25 23:14 Mode of arrival: walk-in History of Present Illness HPI narrative: hemmohoid. started on annusol suppositories but states it is not helping. Also started on stool softener but has not yet had BM. No nausea no vomiting Related Data Home Medications ?Medication ?Instructions ?Recorded ?Confirmed No Known Home Medications 05/10/25 05/10/25 Allergies Allergy/AdvReac Type Severity Reaction Status Date / Time No Known Drug Allergies Allergy Verified 05/10/25 22:53 Review of Systems ROS Status of ROS 10 or more systems reviewed and unremarkable except as noted in history and below PFSH PFSH Social History Little interest or pleasure in doing things: not at all Feeling down, depressed, or hopeless: not at all Exam Constitutional Vital Signs, click to edit/add: Last Vital Signs Temp 98.5 F 05/10/25 22:53 Pulse 84 05/10/25 22:53 Resp 20 05/10/25 22:53 BP 128/85 05/10/25 22:53 Pulse Ox 98 05/10/25 22:53 O2 Del Method Room Air 05/10/25 22:53 Common normals: no apparent distress, average body habitus, oriented x3, no limitations, healthy appearing, alert and well nourished [facility] Common normals: normocephalic and head/scalp atraumatic Eye Common normals: EOMs intact bilaterally and conjunctivae normal Respiratory Common normals: normal respiratory effort, no retractions, no use of accessory muscles and clear to auscultation bilaterally Cardio Common normals: regular rate, regular rhythm, S1 normal heart sound and S2 normal heart sound Other: anal inspection performed with nursing presents. Large external thrombosed appearing hemorrhoid Extremity Common normals: normal to inspection and full ROM Neuro Common normals: oriented x3, CN's II-XII intact bilaterally, moves all extremities and no focal motor deficits Psych Appearance: grossly normal Course Vital Signs Vital signs: Vital Signs Temperature 98.5 F 05/10/25 22:53 Pulse Rate 84 05/10/25 22:53 Respiratory Rate 20 05/10/25 22:53 Blood Pressure 128/85 05/10/25 22:53 Pulse Oximetry 98 05/10/25 22:53 Oxygen Delivery Method Room Air 05/10/25 22:53 Temperature 98.5 F 05/10/25 22:53 Pulse Rate 84 05/10/25 22:53 Respiratory Rate 20 05/10/25 22:53 Blood Pressure 128/85 05/10/25 22:53 Pulse Oximetry 98 05/10/25 22:53 Oxygen Delivery Method Room Air 05/10/25 22:53 Medical Decision Making MDM Narrative Medical decision making narrative: patient presents with external hemorrhoid. large single hemorrhoid. tender. No bleeding. Patient instructed on sitz bath or tub bathing along with hydrocortisone cream. Also to use a laxative to help her have BM and to follow up with gen. surgery Discharge Plan Discharge Chief Complaint: Urogenital-Female Clinical Impression: External hemorrhoid, thrombosed Patient Disposition: Home, Self-Care Prescriptions / Home Meds: No Action No Known Home Medications Print Language: Hebrew Instructions: Hemorrhoids (ED) Additional Instructions: bath tub as discussed. Hydrocortisone cream. Contact General surgery Referrals: Physician,Non-Staff, MD [Primary Care Provider] - 1 week
== END 2025-05-10 23:47 | disposition home or self-care (01) ==
PROVIDERS: Emergency Provider Internal Medicine
DX: K64.5 Perianal venous thrombosis (principal)
CPT/HCPCS: 99281

== ENCOUNTER 2025-10-09 22:25 | Emergency (ER) | payer OTHER, SELFPAY ==
[2025-10-09 22:48] VITALS: BP 104/68; PULSE 70; TEMP 36.6; O2SAT 100; BMI 22.5
[2025-10-09 23:08] LABS: Glucose Urine UA NEGATIVE (NEGATIVE)
[2025-10-09 23:11] LABS: HCG Qualitative Urine* NEGATIVE (NEGATIVE)
[2025-10-09 23:23] LABS: Crystals Seen? Seen #/HPF (None Seen)
[2025-10-09 23:24] LABS: Cast Seen? NONE SEEN #/LPF (NONE SEEN); Urine Culture Indicated YES-FRMC
[2025-10-10] VITALS (20 sets, daily range): BP systolic 88–96; BP diastolic 56–74; PULSE 70; TEMP 36.6; O2SAT 98–100
--- NOTE | 2025-10-10 00:03 | ED.NAVMDI1 ---
HPI - Nausea/Vomiting/Diarrhea General Chief complaint: Nausea/Vomiting/Diarrhea Stated complaint: Nausea/Vomiting/Diarrhea Time Seen by Provider: 10/09/25 23:58 Source: patient Mode of arrival: walk-in Limitations: no limitations History of Present Illness HPI Narrative: presents complaining of diarrhea that started yesterday. Increased episodes of diarrhea today. Watery diarrhea about 7 times today associated with abdominal cramping. no fever. No nausea or vomiting. Neg cough. MD elicited complaint: Reports diarrhea Related Data Home Medications ?Medication ?Instructions ?Recorded ?Confirmed No Known Home Medications 05/10/25 10/09/25 Allergies Allergy/AdvReac Type Severity Reaction Status Date / Time No Known Drug Allergies Allergy Verified 10/09/25 22:51 Review of Systems ROS Status of ROS 10 or more systems reviewed and unremarkable except as noted in history and below PFSH PFSH Social History Little interest or pleasure in doing things: not at all Feeling down, depressed, or hopeless: not at all Exam Constitutional Vital Signs, click to edit/add: Last Vital Signs Temp 97.8 F 10/10/25 03:44 Pulse 70 10/10/25 01:25 Resp 19 10/10/25 01:25 BP 91/64 10/10/25 03:30 Pulse Ox 98 10/10/25 03:30 O2 Del Method Room Air 10/09/25 22:48 Common normals: no apparent distress, average body habitus, oriented x3, no limitations, healthy appearing, alert and well nourished [facility] Common normals: normocephalic and head/scalp atraumatic Eye Common normals: EOMs intact bilaterally and conjunctivae normal Respiratory Common normals: normal respiratory effort, no retractions, no use of accessory muscles and clear to auscultation bilaterally Cardio Common normals: regular rate, regular rhythm, S1 normal heart sound and S2 normal heart sound GI Common normals: Normal to inspection, nondistended, normoactive bowel sounds present and soft to palpation Other: mild lower quad tenderness Extremity Common normals: normal to inspection and full ROM Neuro Common normals: oriented x3, CN's II-XII intact bilaterally, moves all extremities and no focal motor deficits Psych Appearance: grossly normal Course Vital Signs Vital signs: Vital Signs Temperature 97.8 F 10/09/25 22:48 Pulse Rate 70 10/09/25 22:48 Respiratory Rate 18 12/25/25 22:48 Blood Pressure 104/68 10/09/25 22:48 Pulse Oximetry 100 10/09/25 22:48 Oxygen Delivery Method Room Air 10/09/25 22:48 Temperature 97.8 F 10/10/25 03:44 Pulse Rate 70 10/10/25 01:25 Respiratory Rate 19 10/10/25 01:25 Blood Pressure 91/64 10/10/25 03:30 Pulse Oximetry 98 10/10/25 03:30 Oxygen Delivery Method Room Air 10/09/25 22:48 MDM - Nausea/Vomiting/Diarrhea MDM Narrative Medical decision making narrative: presents with diarrhea and crampy abdominal pain. found to be dehydrated and also has UTI. Hydrated and started on antibiotics. Feeling better after treatment. patient informed of elevated AST and ALT. suspect viral cause. Advised to have these rechecked by her doctor Lab Data Labs: Lab Results 10/09/25 10/10/25 Range/Units 22:57 00:18 WBC 12.8 H (4.0-11.0) 10^3/uL RBC 3.81 L (4.20-5.40) 10^6/uL Hgb 12.5 (12.0-16.0) g/dL Hct 36.6 (36.0-48.0) % MCV 96.1 (81.0-99.0) fL MCH 32.8 (26.7-34.0) pg MCHC 34.2 (29.9-35.2) g/dL RDW 12.9 (11.0-15.0) % Plt Count 261 (150-450) 10^3/uL MPV 9.8 (9.5-13.5) fL Neut % (Auto) 91.5 H (43.0-75.0) % Lymph % (Auto) 4.2 L (20.5-60.0) % [place] % (Auto) 3.5 (1.7-12.0) % Eos % (Auto) 0.3 L (0.9-7.0) % Baso % (Auto) 0.2 (0.2-2.0) % Neut # (Auto) 11.7 H (1.4-6.5) 10^3/uL Lymph # (Auto) 0.5 L (1.2-3.8) 10^3/uL [place] # (Auto) 0.5 (0.3-0.8) 10^3/uL Eos # (Auto) 0.0 (0.0-0.7) 10^3/uL Baso # (Auto) 0.0 (0.0-0.1) 10^3/uL Abs Immat Gran (auto) 0.04 H (0.00-0.03) 10^3/uL Imm/Tot Granulo (auto) 0.3 (0.0-0.5) % Sodium 137 (136-145) mmol/L Potassium 3.6 (3.5-5.1) mmol/L Chloride 104 (98-107) mmol/L Carbon Dioxide 25.8 (21.0-32.0) mmol/L Anion Gap 10.8 BUN 13.0 (7.0-18.0) mg/dL Creatinine 0.83 (0.55-1.02) mg/dL Est GFR ( Amer) >60 (>=60 mL/min/1.73m^2) Est GFR (Non-Af Amer) >60 (>=60 mL/min/1.73m^2) BUN/Creatinine Ratio 15.7 Glucose 159 H (74-106) mg/dL Lactate 1.8 (0.4-2.0) mmol/L Calcium 8.6 (8.5-10.1) mg/dL Total Bilirubin 0.3 (0.2-1.0) mg/dL AST 253 H (15-37) U/L ALT 203 H (14-59) U/L Alkaline Phosphatase 73 (46-116) U/L Total Protein 7.1 (6.4-8.2) g/dL Albumin 3.8 (3.4-5.0) g/dL Globulin 3.3 g/dL Albumin/Globulin Ratio 1.2 Serum HCG, Qual Negative (NEGATIVE) Urine Color Yellow (YELLOW) Urine Clarity Clear (CLEAR) Urine pH 5.5 (5.0-9.0) Ur Specific [place] >=1.030 A (1.005-1.025) Urine Protein Trace (NEG/TRACE) mg/dL Urine Glucose (UA) Negative (NEGATIVE) mg/dL Urine Ketones 15 A (NEGATIVE) mg/dL Urine Occult Blood Negative (NEGATIVE) Urine Nitrite Negative (NEGATIVE) Urine Bilirubin Negative (NEGATIVE) Urine Urobilinogen 0.2 (0.2-1.0) EU/dL Ur Leukocyte Esterase Negative (NEGATIVE) Urine RBC 0-2 (0-2) #/HPF Urine WBC 5-10 A (NONE SEEN) #/HPF Ur Squamous Epith Cells Moderate A (NONE/RARE) #/LPF Urine Crystals Seen A (None Seen) #/HPF Calcium Oxalate Crystal Moderate Urine Bacteria Small A (NONE SEEN) #/HPF Urine Casts None seen (NONE SEEN) #/LPF Urine Mucus Small A (NONE SEEN) Ur Culture Indicated[place] [place] [place] HCG, Qual Negative (NEGATIVE) Discharge Plan Discharge Chief Complaint: Nausea/Vomiting/Diarrhea Clinical Impression: Diarrhea, UTI (urinary tract infection), Acute dehydration Patient Disposition: Home, Self-Care Prescriptions / Home Meds: No Action No Known Home Medications Print Language: Polish Instructions: Urinary Tract Infection in Women (ED), Acute Diarrhea (ED) Additional Instructions: use immodium for diarrhea. follow up with your doctor early next week. need to have liver test rechecked as discussed Referrals: Physician,Non-Staff, [Primary Care Provider] - 1 week Discharge Date/Time: 10/10/25 03:56
--- OUTSIDE RECORDS SUMMARY | 2025-10-10 00:13 | XMS_ITS | Clinical Summary ---
Author Organization [facility] Healthcare Address [address] [place] [address] Care Team Providers Care Poultry Husbandry Worker Name Role Phone Ann Marie Brewster Primary Care Provider [phone] Allergies Active AllergyReactionsCriticalityNoted DateCommentsCat WfhhdzGnqbvrz88/08/2019 Other Reaction(s): Other: See Comments Medications MedicationSigDispense QuantityRefillsLast FilledStart DateEnd DateStatus metFORMIN (Glucophage) 500 MG tablet Indications:PCOS (polycystic ovarian syndrome)Take 1 tablet (500 mg) by mouth in the morning. Take with meals. 30 tablet 1103Active Active Problems ProblemNoted DateDiagnosed DatePerianal txhhaox8705/27/2025 Encounters DateTypeDepartmentCare RgadQghdujefnit06/07/2025 4:00 PM EDTOffice Visit [facility] [address] [place] [phone] Bijan Jeter MD Perianal abscess (Primary Dx)07/22/20256956Bwrehe70/29/2025amboo flowsheet [facility] [address] [place] [phone] Bijan Jeter MD 07/14/20253082Bydibx49/26/2025 11:45 AM EDTOffice Visit [facility] [address] [place] [phone] Bijan Jeter MD Perianal abscess (Primary Dx)07/11/2025Travelfrom Last 3 Months Family History Medical HistoryRelationNameCommentsNo Known ProblemsBrotherBreast cancerOther Colon cancerOtherOvarian cancerOtherDiabetesPaternal GrandfatherGary Connors RelationNameStatusCommentsBrotherFatherAliveMotherAliveOtherPaternal Grandfather Gary Connors Social History Tobacco UseTypesPacks/DayYears UsedDateSmoking Tobacco: NeverSmokeless Tobacco: Never Tobacco Cessation:Counseling Given: Not Answered Alcohol UseStandard Drinks/WeekCommentsYes0 (1 standard drink = 0.6 oz pure alcohol)1 or 2 drinks on a typical day/monthly or lessCommentsUnknownSex and Gender InformationValueDate RecordedSex Assigned at YiwluYudasv30/05/2023 10:28 AM EDTLegal WhdXocwrt69/15/2023 6:56 PM EDTGender LduklaxrQiwtnb86/05/2023 10:28 AM EDTSexual TjixvfurcbiUwkofcwz62/05/2023 10:28 AM EDT Last Filed Vital Signs Vital SignReadingTime TakenCommentsBlood Lfvwibzm416/7007 9:23 AM EDT Pulse--Temperature--Respiratory Rate--Oxygen Saturation--Inhaled Oxygen Concentration--Wuwgvp57.5 kg (140 lb)06/24/2025 3:20 PM THCXdqidc896.1 cm (5' 5 )06/24/2025 3:20 PM EDTBody Mass Index23.309 3:20 PM EDT Plan of Treatment Not on file Insurance Care Teams Team MemberRelationshipSpecialtyStart DateEnd Date Ann Marie Brewster DO [address] [facility] [place] [address] [facility]
--- OUTSIDE RECORDS SUMMARY | 2025-10-10 00:13 | XMS_ITS | Clinical Summary ---
Author Organization [facility] Address [address] [place] [address] Phone Care Team Providers Care Superintendent Pier Name Role Phone Nohemy Martinez LPN Unavailable Un available Allergies No known active allergies Medications MedicationSigDispense QuantityRefillsLast FilledStart DateEnd DateStatus PNV no.153/FA/om3/dha/epa/fish ( GUMMIES ORAL) Take 1 capsule by mouth once daily.Active Active Problems No known active problems Social History Tobacco UseTypesPacks/DayYears UsedDateSmoking Tobacco: NeverPassive Smoke Exposure: NeverSmokeless Tobacco: Never Tobacco Cessation:Counseling Given: Not Answered Alcohol UseStandard Drinks/WeekCommentsNever0 (1 standard drink = 0.6 oz pure alcohol)PHQ-2AnswerDate RecordedPatient Health Questionnaire-2 Qubhh478 CommentsUnknownSex and Gender InformationValueDate RecordedSex Assigned at ZnfwwJrfvbi54/25/2024 1:51 PM EDTLegal SlrIkkoda66/26/2022 4:38 AM ESTGender HpkkjgkhZztfso01/25/2024 1:51 PM EDTSexual YcqywmaqxpoIypphcpa96/25/2024 1:51 PM EDT Last Filed Vital Signs Vital SignReadingTime TakenCommentsBlood Esmoasua241/8210/22/2024 10:16 AM EST Jvbpv303410/22/2024 10:16 AM ESTTemperature--Respiratory Rate--Oxygen Saturation-- Inhaled Oxygen Concentration--Uaicgo90.3 kg (155 lb)12/30/2024 9:27 AM EDTHeight 165.1 cm (5' 5 )12/30/2024 9:27 AM EDTBody Mass Index25.7912/30/2024 9:27 AM EDT Plan of Treatment Health MaintenanceDue DateLast DoneCommentsLipid Panel1997Yearly Adult Ldccpaui1997MMR Vaccines (1 of 1 - Standard series)1998Hepatitis B Vaccines (1 of 3 - 19+ 3-dose series)2016Cervical Cancer Screening 2018HPV/Owhnot1006/05/2018Pap Smear2018DTaP/Tdap/Td Vaccines (1 - Tdap)2019HPV Vaccines (1 - 3-dose standard series)4COVID-19 Vaccine (1 - season)2025Influenza Vaccine (#1)2025Zoster Vaccines (1 of 2)2047HIV JukvxgwriNcjgtnkyg59/07/2025Hepatitis C Screening Bhexkdpni17/07/2025HIB VaccinesAged OutNo longer eligible based on patient's age to complete this topicHepatitis A VaccinesAged OutNo longer eligible based on patient's age to complete this topicIPV VaccinesAged OutNo longer eligible based on patient's age to complete this topicMeningococcal VaccineAged OutNo longer eligible based on patient's age to complete this topicPneumococcal Vaccine: Pediatrics and At-Risk Adult PatientsAged OutNo longer eligible based on patient's age to complete this topicRotavirus VaccinesAged OutNo longer eligible based on patient's age to complete this topic Procedures Procedure NamePriorityDate/TimeAssociated DiagnosisCommentsHEPATITIS C ANTIBODY Khyhjus2210/22/2024 11:39 AM EST Screening for STDs (sexually transmitted diseases) HIV 1/2 ANTIGEN/ANTIBODY SCREEN WI REFLEX TO GXMWETAFZLVMHglrdrq43/07/2025 11:39 AM EST Screening for STDs (sexually transmitted diseases) from Last 3 Months or Most Recently Relevant to Health Maintenance Results * Hepatitis C Antibody (10/22/2024 11:39 AM EST)ComponentValueRef RangeTest MethodAnalysis TimePerformed AtPathologist SignatureHepatitis C Anitbody NonreactiveNonreactive LAB IMMUNOASSAY METHOD 10/22/2024 11:08 PM [facility] LABComment:Results from patients taking biotin supplements or receiving high-dose biotin therapy should be interpreted with caution due to possible interference with this test. Providers may contact their locallaboratory for further information.Specimen (Source)Anatomical Location / LateralityCollection Method / VolumeCollection TimeReceived TimeBloodVenous blood specimen / UnknownVenipuncture / Mzxulik6610/22/2024 11:39 AM EST10/22/2024 11:39 AM EST Narrative Authorizing ProviderResult TypeResult StatusDajosesito Lake Sek[place] TELEVISION ANCHOR-CNPLAB BLOOD ORDERABLESFinal ResultPerforming OrganizationAddressCity/State/ZIP CodePhone Number [address] [phone] * HIV 1/2 Antigen/Antibody Screen with Reflex to Confirmation (10/22/2024 11:39 AM EST)ComponentValueRef RangeTest MethodAnalysis TimePerformed AtPathologist SignatureHIV 1/2 Antigen/Antibody Screen with Reflex to Confirmation NonreactiveNonreactive LAB IMMUNOASSAY METHOD 10/23/2024 12:22 AM [facility] LABSpecimen (Source)Anatomical Location / LateralityCollection Method / VolumeCollection TimeReceived TimeBloodVenous blood specimen / UnknownVenipuncture / Pbafxzl3410/22/2024 11:39 AM EST10/22/2024 11:39 AM EST Narrative [facility] - 10/23/2024 12:22 AM EST HIV Ag/Ab screen is performed using the Siemens [employer] HIV Ag/Ab Combo assay which detects the presence of HIV p24 antigen as well as antibodies to HIV-1 (Group M and O) and HIV-2. No laboratory evidence of HIV infection. If acute HIV infection is suspected, consider testing for HIV RNA by PCR (viral load). Authorizing ProviderResult TypeResult StatusDavincent Sapp TELEVISION ANCHOR-CNPLAB BLOOD ORDERABLESFinal ResultPerforming OrganizationAddressCity/State/ZIP CodePhone Number [facility] [address] [place] [phone] from Last 3 Months or Most Recently Relevant to Health Maintenance Insurance * Guarantor: Josy Whitney TypeRelation to PatientDate of BirthPhone Billing AddressPersonal/HwdzyiRxwd[address] [address] MemberSubscriberPlan / Payer (Effective 2023-Present)Name:Devonte Jsoy Chacon Relation to Subscriber:SpouseName:Devonte Caleb Date of :1994 (Home) Address: [address] [place] [address] [address] [place] [address] Payer ID:[id number] (NAIC) Type:Not on file Address: [id number] [place] [phone] * Guarantor: Josy Whitney TypeRelation to PatientDate of BirthPhone Billing AddressPersonal/AccidfGvme1995 [address] [address] MemberSubscriberPlan / Payer (Effective 2023-Present)Name:Josy Whitney Relation to Subscriber:SpouseName:Caleb Whitney Date of :1994 (Home) Address: [address] [place] [address] [address] [place] [address] Payer ID:[id number] (NAIC) Type:Not on file Address: [id number] [place] [phone] Care Teams Team MemberRelationshipSpecialtyStart DateEnd Date Nohemy Martinez LPN Licensed Practical NurseReproductive Endocrinology and Infertility10/22/24
[2025-10-10 00:26] LABS: Hematocrit 36.6 % (36.0-48.0); Hemoglobin 12.5 g/dL (12.0-16.0); Immature Granulocytes Abs Auto 0.04 10^3/uL (0.00-0.03); Immature Granulocytes Pct Auto 0.3 % (0.0-0.5); Lymphocytes Absolute Auto 0.5 10^3/uL (1.2-3.8); Mean Corpuscular HGB Conc 34.2 g/dL (29.9-35.2); Mean Corpuscular Hemoglobin 32.8 pg (26.7-34.0); Mean Corpuscular Volume 96.1 fL (81.0-99.0); Platelet Count 261 10^3/uL (150-450); Red Blood Count 3.81 10^6/uL (4.20-5.40); White Blood Count 12.8 10^3/uL (4.0-11.0)
[2025-10-10 00:45] LABS: Alanine Aminotransferase 203 U/L (14-59); Albumin Globulin Ratio 1.2; Albumin Level 3.8 g/dL (3.4-5.0); Alkaline Phosphatase 73 U/L (46-116); Anion Gap 10.8; Aspartate Amino Transferase 253 U/L (15-37); Blood Urea Nitrogen 13.0 mg/dL (7.0-18.0); Calcium 8.6 mg/dL (8.5-10.1); Carbon Dioxide 25.8 mmol/L (21.0-32.0); Chloride 104 mmol/L (98-107); Estimated GFR (African America >60 (>=60 mL/min/1.73m^2); Estimated GFR (Non-African Ame >60 (>=60 mL/min/1.73m^2); Globulin 3.3 g/dL; Glucose 159 mg/dL (74-106); Potassium 3.6 mmol/L (3.5-5.1); Sodium 137 mmol/L (136-145); Total Protein 7.1 g/dL (6.4-8.2)
[2025-10-10 00:48] LABS: Lactate/Lactic Acid 1.8 mmol/L (0.4-2.0)
[2025-10-10] MEDS: 0.9 % SODIUM CHLORIDE 1,000 ML 999 ML IV ×2 (01:35→02:39)
--- NOTE | 2025-10-10 03:57 | PC.NURSE ---
i gave this patient verbal and written discharge orders along with 1 Rx and this patient voices yes to understanding these. at time of discharge this patient voices no concerns, needs and shows no signs of distress
== END 2025-10-10 03:56 | disposition home or self-care (01) ==
PROVIDERS: Emergency Provider Internal Medicine
DX: E86.0 Dehydration (principal); R19.7 Diarrhea, unspecified; N39.0 Urinary tract infection, site not specified
CPT/HCPCS: 36415; 74177; 80053; 81001; 83605; 84703; 85025; 87086; 87088; 87177; 87209; 87493; 96361; 96365; 99284; J0696; Q9967